=== PATIENT | male | born 1980 | race Caucasian/White ===

== ENCOUNTER 2017-02-17 19:07 | Outpatient (CLI) | payer MEDICAID | END 2017-02-17 19:08 | disposition critical access hospital (66) | LOC: EMS 19:07 | PROVIDERS: ATTEND Surgery | DX: R41.82 Altered mental status, unspecified (principal); T40.1X1A Poisoning by heroin, accidental (unintentional), initial encounter | CPT/HCPCS: A0425; A0427 ==

== ENCOUNTER 2017-02-17 19:34 | Emergency (ER) | payer MEDICAID ==
--- NOTE | 2017-02-17 20:03 | ED Physician Documentation ---
PD HPI OVERDOSE - Stated complaint Stated Complaint: OD - Chief complaint Chief Complaint: MHE - History obtained from History obtained from: Patient, EMS - History of Present Illness Timing - onset: How many minutes ago (30) Subtance(s) ingested: EtOH, Narcotic Associated symptoms: Unresponsive (he was using heroin with friends and says he told them that he will appear passed out. However he reportedly stopped breathing and friends started CPR until EMS arrived. He was given Narcan with prompt improvement in alertness. Brought to ED for evaluation. He says he feels okay enroute here.) Contributing factors: Accidental, Substance abuse. No: Depresssed, Suicidal Similar symptoms before: Diagnosis (has had heroin overdose in the past, as he says he will not do any for awhile and then will use for couple of weeks. The first time using again in a "run" he says he will pass out for a few minutes.) Review of Systems Constitutional: denies: Fever Nose: denies: Rhinorrhea / runny nose, Congestion Throat: denies: Sore throat Cardiac: denies: Chest pain / pressure Respiratory: denies: Cough GI: denies: Abdominal Pain, Vomiting, Diarrhea Neurologic: denies: Focal weakness, Numbness, Headache, Head injury PD PAST MEDICAL HISTORY - Past Medical History Cardiovascular: Hypertension Respiratory: None Endocrine/Autoimmune: None GI: None : None HEENT: None Psych: Other Musculoskeletal: None Derm: None - Past Surgical History Past Surgical History: Yes - Present Medications Home Medications: Ambulatory Orders Medication Instructions Recorded Confirmed Dextroamphetamine/Amphetamine 0 mg 08/21/16 [Adderall 10 mg Tablet] Gabapentin 0 mg PO 08/21/16 HYDROcod/ACETAM 5/325 [Vicodin 1 - 2 ea PO Q6H PRN #20 tablet 08/21/16 5/325] Lisinopril 0 mg PO 08/21/16 Quetiapine Fumarate [Seroquel] 0 mg PO 08/21/16 - Allergies Allergies/Adverse Reactions: Allergies Allergy/AdvReac Type Severity Reaction Status Date / Time No Known Drug Allergies Allergy Verified 02/17/17 19:41 - Living Situation Living Situation: reports: With spouse/s.o. Living Arrangement: reports: At home - Social History Does the pt smoke?: Yes Smoking Status: Current every day smoker Does the pt drink ETOH?: Yes Does the pt have substance abuse?: No - Immunizations Immunizations are current?: Yes - POLST Patient has POLST: No PD ED PE NORMAL - Vitals Vital signs reviewed: Yes - General General: Alert and oriented X 3, No acute distress, Well developed/nourished - HEENT HEENT: PERRL (some hyperemia bilaterally. ), Moist mucous membranes, Pharynx benign - Neck Neck: Supple, no meningeal sign, No adenopathy - Cardiac Cardiac: RRR, No murmur - Respiratory Respiratory: Clear bilaterally - Abdomen Abdomen: Soft, Non tender - Derm Derm: Normal color, Warm and dry - Extremities Extremities: No tenderness to palpate, Normal ROM s pain - Neuro Neuro: Alert and oriented X 3, No motor deficit, Normal speech - Psych Psych: Normal affect Results - Vitals Vitals: Vital Signs - 24 hr 02/17/17 02/17/17 19:41 20:46 Temperature 36.4 C L Heart Rate 100 104 H Respiratory 16 18 Rate Blood Pressure 137/95 H 144/100 H O2 Saturation 97 99 Oxygen O2 Source Room air PD MEDICAL DECISION MAKING - ED course Complexity details: re-evaluated patient (he has remained alert and conversant during EMS ride here and now over an hour in ED. I feel he is safe for discharge and he would like to be headed out of ED at this time. ), considered differential, d/w patient (he says he told friends that he might stop breathing for a minute or so, but to just watch him through it. However his friends called EMS when he was not breathing at all and looked dusky. He is doing okay here, and says he was doing only heroin. He is worried about the diagnosis appearing in his medical record and asks if there is any way for it to not be in the record. I told him that I can't lie/leave out important information from the EHR. He asks if there is a way for drug related info to not be included in his EHR, and I told him the most reliable way would be to not overdose on drugs and get brought to the ED in the first place. I suggested seeking help from NA/ drug counseling clinic/ etc to stop drug abuse.) Departure - Departure Disposition: 01 Home, Self Care Clinical Impression: Unresponsive episode Accidental drug overdose Qualifiers: Encounter type: initial encounter Qualified Code(s): T50.901A - Poisoning by unspecified drugs, medicaments and biological substances, accidental ( unintentional), initial encounter Condition: Stable Record reviewed to determine appropriate education?: Yes Instructions: ED Overdose Accidental Follow-Up: Herminia Denney ARNP [Primary Care Provider] - Comments: Drink lots of fluids tonight. No alcohol or other drugs. Return if further problems. Discharge Date/Time: 02/17/17 20:42
[2017-02-17 20:46] VITALS: BP 144/100
== END 2017-02-17 20:42 | disposition home or self-care (01) ==
LOC: EDUNIT# → ED 19:34
DX: R40.1 Stupor (principal); T40.1X1A Poisoning by heroin, accidental (unintentional), initial encounter; I10 Essential (primary) hypertension; F17.200 Nicotine dependence, unspecified, uncomplicated
CPT/HCPCS: 99283; 99284

== ENCOUNTER 2017-03-05 15:49 | Outpatient (CLI) | payer MEDICAID ==
--- NOTE | 2017-03-06 17:52 | XRAY Report ---
EXAM: STERNUM RADIOGRAPHY EXAM DATE: 03/05/2017 04:08 PM. CLINICAL HISTORY: CONTUSION OF UNSPECIFIED FRONT WALL OF THORAX. COMPARISON: None. TECHNIQUE: 2 views. FINDINGS: Bones: Normal. No fracture or bone lesion. Soft Tissues: The visualized lungs are clear. IMPRESSION: Normal sternum radiography. [facility] Referring Provider Line: [phone] SITE ID: [id number]
== END 2017-03-05 15:50 | disposition home or self-care (01) ==
LOC: DI.S 15:49
PROVIDERS: ATTEND Nurse Practitioner Family
DX: S20.219A Contusion of unspecified front wall of thorax, initial encounter (principal)
CPT/HCPCS: 71120

== ENCOUNTER 2017-04-04 12:23 | Outpatient (CLI) | payer MEDICAID | END 2017-04-04 12:24 | disposition critical access hospital (66) | LOC: EMS 12:23 | PROVIDERS: ATTEND Surgery | DX: R55 Syncope and collapse (principal) | CPT/HCPCS: A0425; A0429 ==

== ENCOUNTER 2017-04-04 13:05 | Emergency (ER) | payer MEDICAID ==
[2017-04-04 13:12] VITALS: BP 131/90
--- NOTE | 2017-04-04 13:12 | ED Physician Documentation ---
PD HPI OVERDOSE - Stated complaint Stated Complaint: OD - History obtained from History obtained from: Patient, EMS - History of Present Illness Timing - onset: Other (Brought in by ambulance, he says he was drinking alcohol in combination with pain medication that he had for recent oral surgery. Per EMS he was surrounded by heroin needles and he does have a history of heroin abuse. Regardless he was unresponsive, but not hypoxic. Brought in by ambulance, no interventions in route, specifically no Narcan. On arrival he is awake and still slightly somnolent but talking and maintaining his airway without hypoxemia.) Review of Systems Constitutional: denies: Fever, Chills GI: denies: Nausea, Vomiting, Diarrhea Musculoskeletal: denies: Neck pain, Back pain PD PAST MEDICAL HISTORY - Past Medical History Cardiovascular: Hypertension Respiratory: None Endocrine/Autoimmune: None GI: None : None HEENT: None Psych: Other Musculoskeletal: None Derm: None - Past Surgical History Past Surgical History: Yes - Present Medications Home Medications: Ambulatory Orders Medication Instructions Recorded Confirmed Gabapentin 0 mg PO 08/21/16 HYDROcod/ACETAM 5/325 [Vicodin 1 - 2 ea PO Q6H PRN #20 tablet 08/21/16 5/325] Lisinopril 0 mg PO 08/21/16 Quetiapine Fumarate [Seroquel] 0 mg PO 08/21/16 - Allergies Allergies/Adverse Reactions: Allergies Allergy/AdvReac Type Severity Reaction Status Date / Time No Known Drug Allergies Allergy Verified 02/17/17 19:41 - Social History Does the pt smoke?: Yes Smoking Status: Current every day smoker Does the pt drink ETOH?: Yes Does the pt have substance abuse?: No - Immunizations Immunizations are current?: Yes - POLST Patient has POLST: No PD ED PE NORMAL - Vitals Vital signs reviewed: Yes - General General: Alert and oriented X 3, No acute distress, Other (Slightly slow slurred speech, small pupils, cogent) - Neck Neck: Supple, no meningeal sign, No bony TTP - Cardiac Cardiac: RRR, No murmur - Respiratory Respiratory: No respiratory distress, Clear bilaterally - Abdomen Abdomen: Non tender, Non distended - Extremities Extremities: No deformity, No tenderness to palpate, Normal ROM s pain, No edema , No calf tenderness / cord - Neuro Neuro: No motor deficit, No sensory deficit Results - Vitals Vitals: Vital Signs - 24 hr 04/04/17 13:07 Temperature 36.9 C Heart Rate 107 H Respiratory 14 Rate Blood Pressure 131/90 H O2 Saturation 98 Oxygen O2 Source Room air PD MEDICAL DECISION MAKING - ED course ED course: He presents with either a heroin overdose or a combination of alcohol and pain killers. There was no need for Narcan and he was observed for a couple of hours and he remained cogent. He was ambulatory in the department without issue. He was advised not to use drugs. Departure - Departure Disposition: 01 Home, Self Care Clinical Impression: Narcotic overdose Qualifiers: Encounter type: initial encounter Injury intent: accidental or unintentional Qualified Code(s): T40.601A - Poisoning by unspecified narcotics, accidental ( unintentional), initial encounter Condition: Good Record reviewed to determine appropriate education?: Yes Comments: Stay away from drugs, especially drugs in combination with alcohol. Call your doctor to arrange a follow-up appointment, make the next available appointment. In the interim, return anytime if worse or if new symptoms develop. Your blood pressure was elevated today on check into the emergency department. This does not mean that you have hypertension, it is a common phenomenon to come to the emergency department and have elevated blood pressure. I recommend that she see her primary care physician within the week to have it rechecked when you are feeling better.
== END 2017-04-04 14:47 | disposition home or self-care (01) ==
LOC: EDUNIT# → ED 13:05
DX: T40.601A Poisoning by unspecified narcotics, accidental (unintentional), initial encounter (principal); I10 Essential (primary) hypertension; F17.200 Nicotine dependence, unspecified, uncomplicated
CPT/HCPCS: 99283

== ENCOUNTER 2017-05-18 16:35 | Outpatient (CLI) | payer MEDICAID | END 2017-05-18 16:36 | disposition short-term general hospital (02) | LOC: EMS 16:35 | PROVIDERS: ATTEND Surgery | DX: S91.011A Laceration without foreign body, right ankle, initial encounter (principal); W11.XXXA Fall on and from ladder, initial encounter; Y92.008 Other place in unspecified non-institutional (private) residence as the place of occurrence of the external cause | CPT/HCPCS: A0425; A0433 ==

== ENCOUNTER 2017-11-03 11:01 | Emergency (ER) | payer MEDICAID ==
--- NOTE | 2017-11-03 11:56 | ED Physician Documentation ---
History of Present Illness - Stated complaint Stated Complaint: POST SURGERY SITE REDNESS - Chief complaint Chief Complaint: Ext Problem - History obtained from History obtained from: Patient, Family (mother) - History of Present Illness Timing: How many days ago (2) Pain level max: 3 Pain level now: 3 Improved by: elevation Worsened by: walking - Additonal information Additional information: Patient is a 37 year old male who is s/p calcaneus fracture and repair in july. complicated by wound infection and skin grafting. States was on IV vancomycin and discharged from [facility] on 09/25 and has been on bactrim and minocycline since that time. Stopped abx 2 days ago and now increasing redness and pain. Patient was scheduled to see infectious disease at [facility] today, but could not find a ride and so came here instead. He is being followed by plastic surgery for the graft and orthopedics for the ankle hardware. Review of Systems Constitutional: denies: Fever, Chills Nose: denies: Rhinorrhea / runny nose, Congestion Respiratory: denies: Cough GI: denies: Nausea, Vomiting, Diarrhea Skin: denies: Rash Musculoskeletal: denies: Neck pain, Back pain Neurologic: denies: Headache PD PAST MEDICAL HISTORY - Past Medical History Past Medical History: Yes Cardiovascular: Hypertension Respiratory: None Endocrine/Autoimmune: None GI: None : None HEENT: None Psych: Other Musculoskeletal: None Derm: None - Past Surgical History Past Surgical History: Yes - Present Medications Home Medications: Ambulatory Orders Medication Instructions Recorded Confirmed Gabapentin 0 mg PO 08/21/16 Lisinopril 0 mg PO 08/21/16 Quetiapine Fumarate [Seroquel] 0 mg PO 08/21/16 Buprenorphine HCl/Naloxone HCl 1 each SL TID 11/03/17 11/03/17 [Suboxone 8 mg-2 mg Sl Film] Minocycline HCl 100 mg PO 11/03/17 Minocycline HCl 100 mg PO BID #28 capsule 11/03/17 Sulfamethox/Trimeth 800/160 2 each PO BID #56 tablet 11/03/17 [Bactrim Ds 800/160] Sulfamethoxazole/Trimethoprim 1 each PO 11/03/17 [Bactrim 400-80 mg Tablet] - Allergies Allergies/Adverse Reactions: Allergies Allergy/AdvReac Type Severity Reaction Status Date / Time bee venom protein (honey bee) Allergy Anaphylaxis Verified 11/03/17 11:06 - Social History Does the pt smoke?: Yes Smoking Status: Current every day smoker Does the pt drink ETOH?: Yes Does the pt have substance abuse?: No - Immunizations Immunizations are current?: Yes - POLST Patient has POLST: No PD ED PE NORMAL - Vitals Vital signs reviewed: Yes - General General: Alert and oriented X 3, No acute distress, Well developed/nourished - HEENT HEENT: Moist mucous membranes - Neck Neck: Supple, no meningeal sign - Cardiac Cardiac: RRR - Respiratory Respiratory: No respiratory distress, Clear bilaterally - Derm Derm: Warm and dry - Extremities Extremities: Other (R ankle graft in place over medial malleolus, slight swelling and warmth. no drainage. no lymphangitis.) - Neuro Neuro: Alert and oriented X 3 - Psych Psych: Normal mood, Normal affect Results - Vitals Vitals: Vital Signs - 24 hr 11/03/17 11/03/17 11/03/17 11:03 13:16 16:30 Temperature 36.8 C Heart Rate 104 H 94 88 Respiratory 18 16 20 Rate Blood Pressure 174/98 H 133/92 H 136/87 H O2 Saturation 100 97 Oxygen O2 Source Room air - Labs Labs: Laboratory Tests 11/03/17 11/03/17 11/03/17 12:30 12:30 12:30 WBC 7.0 RBC 5.29 Hgb 12.0 L Hct 37.8 L MCV 71.5 L MCH 22.6 L MCHC 31.7 L RDW 18.2 H Plt Count 291 MPV 6.1 L Neut # 4.8 Lymph # 1.6 [place] # 0.5 Eos # 0.0 Baso # 0.1 Absolute Nucleated RBC 0.00 Nucleated RBC % 0.0 ESR Sodium 133 L Potassium 3.6 Chloride 101 Carbon Dioxide 20 L Anion Gap 12.0 BUN 9 Creatinine 0.8 Estimated GFR (MDRD) 108 Glucose 130 H Lactic Acid 2.4 H Calcium 8.9 Total Bilirubin 0.4 AST 56 H ALT 64 H Alkaline Phosphatase 100 C-Reactive Protein Total Protein 7.6 Albumin 4.5 Globulin 3.1 Albumin/Globulin Ratio 1.5 Lipase 12 L 11/03/17 11/03/17 12:30 12:30 WBC RBC Hgb Hct MCV MCH MCHC RDW Plt Count MPV Neut # Lymph # [place] # Eos # Baso # Absolute Nucleated RBC Nucleated RBC % ESR 4 Sodium Potassium Chloride Carbon Dioxide Anion Gap BUN Creatinine Estimated GFR (MDRD) Glucose Lactic Acid Calcium Total Bilirubin AST ALT Alkaline Phosphatase C-Reactive Protein < 1.0 Total Protein Albumin Globulin Albumin/Globulin Ratio Lipase PD MEDICAL DECISION MAKING - ED course Complexity details: reviewed old records, reviewed results, re-evaluated patient , considered differential, d/w patient, d/w family, d/w reporting process consultant ED course: Patient is a 37-year-old gentleman who presents to the emergency department with swelling and tenderness to the right ankle graft. Discussed the case with Dr. Palomo, plastic surgery on-call at [facility] at 1350 and he will follow-up with plastic surgery in 1-2 weeks in clinic. Also discussed case with Dr. Hudson, at 1645, infectious disease on-call who recommends continue current antibiotics and follow-up in 1-2 weeks as well. Patient is well-appearing, nontoxic. Blood cultures were drawn in case they turn positive given his slightly elevated lactate. Negative inflammatory markers. Patient counseled regarding signs and symptoms for which I believe and urgent re- evaluation would be necessary. Patient with good understanding of and agreement to plan and is comfortable going home at this time This document was made in part using voice recognition software. While efforts are made to proofread this document, sound alike and grammatical errors may occur. Departure - Departure Disposition: 01 Home, Self Care Clinical Impression: Cellulitis Qualifiers: Site of cellulitis: extremity Site of cellulitis of extremity: lower extremity Laterality: right Qualified Code(s): L03.115 - Cellulitis of right lower limb Condition: Good Instructions: ED Infec Skin Cellulitis Follow-Up: Herminia Denney ARNP [Primary Care Provider] - Prescriptions: Minocycline HCl 100 mg PO BID #28 capsule Sulfamethox/Trimeth 800/160 [Bactrim Ds 800/160] 2 each PO BID #56 tablet Comments: Take all antibiotics until gone. Return if you worsen. I spoke with Dr. Palomo at [facility] today (plastics) and would like you to be seen in clinic in 1-[address] Glover. Infectious disease has not called back despite multiple pages over the past 3 hours. We will extend your antibiotics and I will talk to them if they call back Discharge Date/Time: 11/03/17 16:43
[2017-11-03 12:36] LABS: BASOPHILS # (AUTO) 0.1 10^3/uL (0.0-0.1); BASOPHILS % (AUTO) 0.9 %; EOSINOPHILS % (AUTO) 0.5 %; LYMPHOCYTES # (AUTO) 1.6 10^3/uL (1.5-3.5); LYMPHOCYTES % (AUTO) 23.4 %; MEAN CORPUSCULAR HEMOGLOBIN 22.6 pg (27.0-31.0); MEAN CORPUSCULAR HGB CONC 31.7 g/dL (32.0-36.0); MEAN CORPUSCULAR VOLUME 71.5 fL (80.0-94.0); MEAN PLATELET VOLUME 6.1 fL (7.4-11.4); MONOCYTES # (AUTO) 0.5 10^3/uL (0.0-1.0); MONOCYTES % (AUTO) 6.7 %; NEUTROPHILS # (AUTO) 4.8 10^3/uL (1.5-6.6); NEUTROPHILS % (AUTO) 68.5 %; PLT - PLATELET COUNT 291 10^3/uL (130-450); RED BLOOD COUNT 5.29 10^6/uL (4.70-6.10); RED CELL DISTRIBUTION WIDTH 18.2 % (12.0-15.0)
[2017-11-03 12:48] LABS: ALBUMIN 4.5 g/dL (3.2-5.5); ALBUMIN/GLOBULIN RATIO 1.5 (1.0-2.2); BILIRUBIN,TOTAL 0.4 mg/dL (0.2-1.0); CALCIUM 8.9 mg/dL (8.5-10.3); CREATININE 0.8 mg/dL (0.6-1.2); TOTAL PROTEIN 7.6 g/dL (6.7-8.2)
[2017-11-03] MEDS ORDERED: cefTRIAXone 1 GM VIAL IM STA (13:56)
[2017-11-03] MEDS ORDERED: LIDOCAINE 1% 2 ML VIAL SUBQ ONE (13:56)
[2017-11-03 16:43] VITALS: BP 136/87
== END 2017-11-03 16:43 | disposition home or self-care (01) ==
LOC: ED 11:01
DX: L03.115 Cellulitis of right lower limb (principal); Z98.890 Other specified postprocedural states; I10 Essential (primary) hypertension
CPT/HCPCS: 36415; 80053; 83605; 83690; 85025; 85651; 86140; 87040; 96372; 99283; 99284

== ENCOUNTER 2018-03-03 00:31 | Emergency (ER) | payer MEDICAID ==
--- NOTE | 2018-03-03 03:03 | ED Physician Documentation ---
History of Present Illness - Stated complaint Stated Complaint: FEVER - Chief complaint Chief Complaint: Fever - History obtained from History obtained from: Patient - History of Present Illness Timing: Yesterday Pain level now: 6 Improved by: rest Worsened by: palpation, weight-bearing - Additonal information Additional information: patient says he is scheduled to have surgery at 7 AM at [facility] to have revision of RLE hardware that had been placed last year to repair traumatic injury. patient says he has had fevers over past 24 hours, Tmax 102.8. He also c/o increased pain and swelling of the RLE x 1 - 2 days. PD PAST MEDICAL HISTORY - Past Medical History Cardiovascular: Hypertension Respiratory: None Endocrine/Autoimmune: None GI: None : None HEENT: None Psych: Other Musculoskeletal: None Derm: None - Past Surgical History Past Surgical History: Yes - Present Medications Home Medications: Ambulatory Orders Medication Instructions Recorded Confirmed Gabapentin 800 mg PO TID 08/21/16 Lisinopril 40 mg PO DAILY 08/21/16 Quetiapine Fumarate [Seroquel] 100 mg PO DAILY 08/21/16 Buprenorphine HCl/Naloxone HCl 1 each SL TID 11/03/17 03/03/18 [Suboxone 8 mg-2 mg Sl Film] - Allergies Allergies/Adverse Reactions: Allergies Allergy/AdvReac Type Severity Reaction Status Date / Time bee venom protein (honey bee) Allergy Anaphylaxis Verified 03/03/18 00:40 - Social History Does the pt smoke?: Yes Smoking Status: Current every day smoker Does the pt drink ETOH?: Yes Does the pt have substance abuse?: No - Immunizations Immunizations are current?: Yes - POLST Patient has POLST: No Results - Vitals Vitals: Oxygen O2 Source Room air - Labs Labs: Laboratory Tests 03/03/18 03/03/18 03/03/18 03:55 03:55 03:55 WBC 11.4 H RBC 5.35 Hgb 12.7 L Hct 39.6 L MCV 74.1 L MCH 23.7 L MCHC 32.0 RDW 19.1 H Plt Count 216 MPV 6.1 L Neut # (Auto) 7.9 H Lymph # (Auto) 2.3 [place] # (Auto) 1.1 H Eos # (Auto) 0.0 Baso # (Auto) 0.1 Absolute Nucleated RBC 0.01 Nucleated RBC % 0.1 ESR 1 Sodium 133 L Potassium 3.7 Chloride 96 L Carbon Dioxide 28 Anion Gap 9.0 BUN 8 Creatinine 0.9 Estimated GFR (MDRD) 93 Glucose 124 H Calcium 8.7 C-Reactive Protein 2.8 H PD MEDICAL DECISION MAKING - ED course Complexity details: reviewed old records, considered differential, d/w patient ED course: no obvious source for fever, although there is unusual warmth (tactile) over the RLE surgical site, which is exhibits swelling, tenderness, and erythema; it is unclear if these findings are new, although patient says the pain and swelling are not normal for him. He did not request any medications during entire ED stay. D/W Dr. Choi (ortho with Dr. Poole, who is scrubbed into surgery); recommends patient come to [facility] as scheduled for surgery, and he can be assessed preoperatively to determine whether the surgery can proceed, or if he is too ill for surgery (in which case he might be sent to ED). If patient does not appear to be ill enough to obviously require hospital admission, can consider the option of private vehicle as patient was planning. unfortunately, when I discussed this with the patient, he reveals to me that he planned to have his friend drive him to [facility] for the appointment, but he feels his friend drank too much alcohol to safely drive. I asked patient how he got to [facility] ED, and he says the same friend drove him here. I advised him to tell his friend to not drive if he is intoxicated, but patient indicates to me that his friend dropped him off and left a while ago. Patient says he has no other options to get to [facility] except some transport company that requires 24 hours notice. At this point, I decided to transport patient by ambulance to [facility] ED. I feel that he needs further evaluation for source of fever on an expedited basis, and the orthopedic team at [facility] will need to be involved in ascertaining whether the leg hardware is involved in the cause of the fever (and whether surgery will be necessary to treat the fevers etiology). - Sepsis Event Vital Signs: Oxygen O2 Source Room air Departure - Departure Disposition: 02 Transfer Acute Care Hosp Clinical Impression: Fever, Leg pain, right Condition: Good Discharge Date/Time: 03/03/18 08:39
[2018-03-03 04:05] LABS: BASOPHILS # (AUTO) 0.1 10^3/uL (0.0-0.1); BASOPHILS % (AUTO) 0.8 %; HGB - HEMOGLOBIN 12.7 g/dL (14.0-18.0); LYMPHOCYTES # (AUTO) 2.3 10^3/uL (1.5-3.5); LYMPHOCYTES % (AUTO) 20.5 %; MEAN CORPUSCULAR HEMOGLOBIN 23.7 pg (27.0-31.0); MEAN CORPUSCULAR VOLUME 74.1 fL (80.0-94.0); MEAN PLATELET VOLUME 6.1 fL (7.4-11.4); MONOCYTES # (AUTO) 1.1 10^3/uL (0.0-1.0); MONOCYTES % (AUTO) 9.6 %; NEUTROPHILS # (AUTO) 7.9 10^3/uL (1.5-6.6); NEUTROPHILS % (AUTO) 69.1 %; PLT - PLATELET COUNT 216 10^3/uL (130-450); RED BLOOD COUNT 5.35 10^6/uL (4.70-6.10); RED CELL DISTRIBUTION WIDTH 19.1 % (12.0-15.0); WHITE BLOOD COUNT 11.4 x10^3/uL (4.8-10.8)
[2018-03-03 04:22] LABS: CALCIUM 8.7 mg/dL (8.5-10.3); CREATININE 0.9 mg/dL (0.6-1.2); CRP - C-REACTIVE PROTEIN 2.8 mg/dL (0-1.0)
[2018-03-03 08:41] VITALS: BP 120/90
== END 2018-03-03 08:39 | disposition short-term general hospital (02) ==
LOC: ED 00:31
DX: R50.9 Fever, unspecified (principal); M79.661 Pain in right lower leg; M79.89 Other specified soft tissue disorders; I10 Essential (primary) hypertension; F17.200 Nicotine dependence, unspecified, uncomplicated
CPT/HCPCS: 36415; 80048; 85025; 85651; 86140; 99283

== ENCOUNTER 2018-04-03 12:02 | Emergency (ER) | payer MEDICAID ==
[2018-04-03] MEDS ORDERED: VANCOMYCIN INJ 1 GM in SODIUM CHLORIDE 0.9% 500 ML IV STA (12:54)
[2018-04-03] MEDS ORDERED: PIPERACILLIN/TAZOBACTAM 3.375 GM in SODIUM CHLORIDE 0.9% MINIBAG 100 ML IV STA (12:54)
--- NOTE | 2018-04-03 12:57 | ED Physician Documentation ---
History of Present Illness - Stated complaint Stated Complaint: R FOOT SWELLING/PX POST OP 10 DAYS - Chief complaint Chief Complaint: Ext Problem - Additonal information Additional information: hx from pt 38 male last fall had a 40 ft fall off ladder into a ravine and suffered an open L calcaneal fx had surgery at [facility] has had 8 or 9 surgeries since and infections at one point was admitted for 2 months of IV ab most recent surgery was 10 days ago - ortho red team no painful red swollen and draining pus from posterior incision Review of Systems Constitutional: denies: Fever Cardiac: denies: Chest pain / pressure Respiratory: denies: Dyspnea Musculoskeletal: reports: Extremity pain PD PAST MEDICAL HISTORY - Past Medical History Past Medical History: Yes Cardiovascular: Hypertension Respiratory: None Endocrine/Autoimmune: None GI: None : None HEENT: None Psych: Other Musculoskeletal: None Derm: None - Past Surgical History Past Surgical History: Yes - Present Medications Home Medications: Ambulatory Orders Medication Instructions Recorded Confirmed Gabapentin 800 mg PO TID 08/21/16 04/03/18 Lisinopril 40 mg PO DAILY 08/21/16 04/03/18 Quetiapine Fumarate [Seroquel] 100 mg PO DAILY 08/21/16 04/03/18 Modafinil 1 tab PO DAILY 04/03/18 04/03/18 OXcarbazepine [Oxcarbazepine] 1 tab PO DAILY 04/03/18 04/03/18 - Allergies Allergies/Adverse Reactions: Allergies Allergy/AdvReac Type Severity Reaction Status Date / Time bee venom protein (honey bee) Allergy Anaphylaxis Verified 04/03/18 12:10 - Social History Does the pt smoke?: Yes Smoking Status: Current every day smoker Does the pt drink ETOH?: Yes Does the pt have substance abuse?: No - Immunizations Immunizations are current?: Yes - POLST Patient has POLST: No PD ED PE NORMAL - Vitals Vital signs reviewed: Yes - Cardiac Cardiac: RRR - Respiratory Respiratory: No respiratory distress, Clear bilaterally - Extremities Extremities: Other (L foot / heel deformity, numerous surgical scars, skin grafts, posterior suture line dehisc with purulent drainage whch was cultured, erythema and some warmth very TTP, MSV intact) Results - Vitals Vitals: Vital Signs - 24 hr 04/03/18 04/03/18 12:07 14:39 Temperature 36.1 C L 36.6 C Heart Rate 97 85 Respiratory 18 18 Rate Blood Pressure 147/91 H 141/77 H O2 Saturation 97 96 Oxygen O2 Source Room air - Labs Labs: Laboratory Tests 04/03/18 04/03/18 13:40 13:40 WBC 11.9 H RBC 5.49 Hgb 13.3 L Hct 40.5 L MCV 73.8 L MCH 24.2 L MCHC 32.8 RDW 18.4 H Plt Count 398 MPV 5.8 L Neut # (Auto) Not Reportable Lymph # (Auto) Not Reportable Saline # (Auto) Not Reportable Eos # (Auto) Not Reportable Baso # (Auto) Not Reportable Absolute Nucleated RBC Not Reportable Total Counted 100 Band Neuts % (Manual) 1 Abnorm Lymph % (Manual) 0 Nucleated RBC % Not Reportable Neutrophils # (Manual) 7.6 H Lymphocytes # (Manual) 3.5 Monocytes # (Manual) 0.7 Eosinophils # (Manual) 0.1 Basophils # (Manual) 0.0 Differential Comment MANUAL DIFFERENTIAL Platelet Estimate NORMAL (130-450,000) Platelet Morphology NORMAL APPEARANCE RBC Morph Micro Appear 1+ HYPOCHROMASIA Sodium 133 L Potassium 4.2 Chloride 94 L Carbon Dioxide 29 Anion Gap 10.0 BUN 6 Creatinine 0.8 Estimated GFR (MDRD) 107 Glucose 109 H Calcium 8.9 PD MEDICAL DECISION MAKING - ED course ED course: spoke to [facility] ortho pt surgery was actually mid February and he did not make his follow up appt they rec transfer to ER for them to eval pt accepting is ortho Dr Garsia labs pending did not order imaging as will need to compare to old given extensive reconstructive surgery zosyn and vanco IV percocet for pain - Sepsis Event Vital Signs: Vital Signs - 24 hr 04/03/18 04/03/18 12:07 14:39 Temperature 36.1 C L 36.6 C Heart Rate 97 85 Respiratory 18 18 Rate Blood Pressure 147/91 H 141/77 H O2 Saturation 97 96 Oxygen O2 Source Room air Departure - Departure Disposition: 02 Transfer Acute Care Hosp Clinical Impression: Post op infection Qualifiers: Encounter type: initial encounter Qualified Code(s): T81.4XXA - Infection following a procedure, initial encounter Condition: Good Discharge Date/Time: 04/03/18 15:24
[2018-04-03] MEDS ORDERED: oxyCOD/ACETAMIN 5 MG/325 MG TABLET PO STA (13:40)
[2018-04-03 13:50] LABS: BASOPHILS % (AUTO) 0.9 %; EOSINOPHILS % (AUTO) 0.3 %; HGB - HEMOGLOBIN 13.3 g/dL (14.0-18.0); LYMPHOCYTES % (AUTO) 24.9 %; MEAN CORPUSCULAR HEMOGLOBIN 24.2 pg (27.0-31.0); MEAN CORPUSCULAR HGB CONC 32.8 g/dL (32.0-36.0); MEAN CORPUSCULAR VOLUME 73.8 fL (80.0-94.0); MEAN PLATELET VOLUME 5.8 fL (7.4-11.4); MONOCYTES % (AUTO) 8.9 %; PLT - PLATELET COUNT 398 10^3/uL (130-450); RED BLOOD COUNT 5.49 10^6/uL (4.70-6.10); RED CELL DISTRIBUTION WIDTH 18.4 % (12.0-15.0); WHITE BLOOD COUNT 11.9 x10^3/uL (4.8-10.8)
[2018-04-03 13:54] LABS: ABNORMAL LYMPHS % (MANUAL) 0 %; CALCIUM 8.9 mg/dL (8.5-10.3); CREATININE 0.8 mg/dL (0.6-1.2)
[2018-04-03 14:17] LABS: BAND NEUTROPHILS % (MANUAL) 1 %; EOSINOPHILS # (MANUAL) 0.1 10^3/uL (0-0.7); LYMPHOCYTES # (MANUAL) 3.5 10^3/uL (1.5-3.5); LYMPHOCYTES % (MANUAL) 29 %; MONOCYTES # (MANUAL) 0.7 10^3/uL (0.0-1.0); NEUTROPHILS # (MANUAL) 7.6 10^3/uL (1.5-6.6); NEUTROPHILS % (MANUAL) 63 %; PLATELET MORPHOLOGY NORMAL APPEARANCE (NORMAL)
[2018-04-03 14:18] LABS: DIFFERENTIAL COMMENT MANUAL DIFFERENTIAL; PLATELET ESTIMATE, MANUAL NORMAL (130-450,000) (NORMAL)
[2018-04-03 14:40] VITALS: BP 141/77
[2018-04-03] MEDS ORDERED: HYDROmorphone 1 MG/ML CARPUJECT IVP STA ×2 (15:03→15:04)
== END 2018-04-03 15:24 | disposition short-term general hospital (02) ==
LOC: ED 12:02
DX: T81.4XXA Infection following a procedure, initial encounter (principal); M79.671 Pain in right foot; M79.89 Other specified soft tissue disorders; I10 Essential (primary) hypertension; F17.200 Nicotine dependence, unspecified, uncomplicated
CPT/HCPCS: 36415; 80048; 85025; 87070; 87181; 87205; 96365; 96375; 99283; 99284; A9270; J1170; J3370

== ENCOUNTER 2018-04-03 15:22 | Outpatient (CLI) | payer MEDICAID | END 2018-04-03 15:23 | disposition short-term general hospital (02) | LOC: EMS 15:22 | PROVIDERS: ATTEND Surgery | DX: M79.671 Pain in right foot (principal); M79.89 Other specified soft tissue disorders | CPT/HCPCS: A0425; A0426; A0999 ==

== ENCOUNTER 2018-05-27 12:00 | Emergency (ER) | payer MEDICAID ==
--- NOTE | 2018-05-27 12:58 | XRAY Report ---
Reason: pain Procedure Date: 05/27/2018 Accession Number: [id number] / [id number] Procedure: XR - Ankle 3 View RT CPT Code: FULL RESULT: EXAM: RIGHT ANKLE RADIOGRAPHY EXAM DATE: 05/27/2018 12:43 PM. CLINICAL HISTORY: Pain. COMPARISON: None. TECHNIQUE: 3 views. FINDINGS: Bones: Disuse osteopenia. Multiple screws in the calcaneus traverse a previous fracture. Fracture lines remain visible, with sclerosis. Loss of Boehler's angle. Small plantar and posterior calcaneal spurs. Ununited smooth margined fracture fragments at tips of lateral and medial malleoli. Deformity of posterior tibia at the level of posterior malleolus due to old fracture. No definite acute fracture or other bone lesion. Joints: Symmetrical mortise. Soft Tissues: Soft tissue swelling over the malleoli. Surgical joão posteriorly at the Achilles tendon level. IMPRESSION: 1. Soft tissue swelling. 2. Extensive postoperative and posttraumatic changes. Calcaneal fracture lines are made visible. RADIA
--- NOTE | 2018-05-27 13:07 | ED Physician Documentation ---
PD HPI LOWER EXT INJURY - Stated complaint Stated Complaint: R LEG PX - Chief complaint Chief Complaint: Ext Problem - History obtained from History obtained from: Patient - History of Present Illness PD HPI LOW EXT INJURY LOCATION: Right, Ankle (heel) Type of injury: Fall (he fell and landed onto right heel forcefully. Had had recent infection and surgery of that heel, with multiple surgeries in the past and infections. Has much increased pain ater anding on it, over baseline ain that he has chronically.) Timing - onset: Today Timing - details: Abrupt onset (has chronic pain of it, but markedly increased with injury today.) Worsened by: Moving, Palpating Associated symptoms: Swelling. No: Weakness, Numbness, Discolored Recently seen: Surgery (had surgery of the heel recently due to infection and prior surgeries.) Review of Systems Constitutional: denies: Fever, Chills, Myalgias Skin: reports: Lesions (chronic scarring right heel from prior surgeries and injuries.). denies: Abrasion (s), Laceration (s) Neurologic: denies: Focal weakness, Numbness PD PAST MEDICAL HISTORY - Past Medical History Cardiovascular: Hypertension Respiratory: None Endocrine/Autoimmune: None GI: None : None HEENT: None Psych: Other Musculoskeletal: None Derm: None - Past Surgical History Past Surgical History: Yes - Present Medications Home Medications: Ambulatory Orders Medication Instructions Recorded Confirmed Gabapentin 800 mg PO TID 08/21/16 04/03/18 Lisinopril 40 mg PO DAILY 08/21/16 04/03/18 Quetiapine Fumarate [Seroquel] 100 mg PO DAILY 08/21/16 04/03/18 Modafinil 1 tab PO DAILY 04/03/18 04/03/18 OXcarbazepine [Oxcarbazepine] 1 tab PO DAILY 04/03/18 04/03/18 Buprenorphine HCl/Naloxone HCl 1 tab 05/27/18 [Suboxone 8-2 mg Sl tab] Doxycycline Monohydrate 100 mg PO BID #14 tablet 05/27/18 Mupirocin 1 applic TP TID #15 oint...g. 05/27/18 Naproxen [Naprosyn] 500 mg PO BID PRN #20 tablet 05/27/18 - Allergies Allergies/Adverse Reactions: Allergies Allergy/AdvReac Type Severity Reaction Status Date / Time bee venom protein (honey bee) Allergy Anaphylaxis Verified 05/27/18 12:15 - Social History Does the pt smoke?: Yes Smoking Status: Current every day smoker Does the pt drink ETOH?: Yes Does the pt have substance abuse?: No - Immunizations Immunizations are current?: Yes - POLST Patient has POLST: No PD ED PE NORMAL - Vitals Vital signs reviewed: Yes - General General: Alert and oriented X 3, Well developed/nourished, Other (appears in considerable pain due to heel. ) - Cardiac Cardiac: Strong equal pulses - Extremities Extremities: No edema, No calf tenderness / cord, Other (right heel is very tender plantar aspect. Achilles firm and intact. No obvious redness of foot/heel. ) - Neuro Neuro: No motor deficit, No sensory deficit Results - Vitals Vitals: Oxygen O2 Source Room air - Rads (name of study) ankle Radiology: Prelim report reviewed (post surgical changes without clear new acute abnormality. ) PD MEDICAL DECISION MAKING - ED course Complexity details: reviewed results, re-evaluated patient, considered differential (he has had surgery of the heel again recently and struck it forcefully with stepping and is having pain. Presume some swelling. Xray shows screws in place and surgical changes. Can be hard to tell if minor new fx. No gross new. ), d/w patient - Sepsis Event Vital Signs: Oxygen O2 Source Room air Departure - Departure Disposition: 01 Home, Self Care Clinical Impression: Post-operative state Heel pain Qualifiers: Laterality: right Qualified Code(s): M79.671 - Pain in right foot Contusion of right heel Qualifiers: Encounter type: initial encounter Qualified Code(s): S90.31XA - Contusion of right foot, initial encounter Condition: Stable Record reviewed to determine appropriate education?: Yes Instructions: ED Contusion Lower Ext Follow-Up: Herminia Denney ARNP [Primary Care Provider] - [facility] [Provider Group] Prescriptions: Doxycycline Monohydrate 100 mg PO BID #14 tablet Mupirocin 1 applic TP TID #15 oint...g. Naproxen [Naprosyn] 500 mg PO BID PRN #20 tablet PRN Reason: Pain Comments: Your x-ray has enough prior injury and surgical changes it is hard to tell subtle fractures that might be there. Nothing grossly jumps out as abnormal. We can treat it with a splint and crutches and switch over to your walking boot as it is improving. Follow-up with the if not improved over the next several days to week, call for an appointment. If there were some dislodgment of prior small fractures, that would be the main treatment initially. Continue your present medications and add naproxen twice daily for inflammation and pain. Cleanse or soak the prior wound with soap and water 2-3 times a day and apply ointment mupirocin. Since he had had recent infection of the soft tissue in that area, would be worried about inspiring a new infection with this injury and so you could take doxycycline twice daily for a week. Discharge Date/Time: 05/27/18 14:47
[2018-05-27] MEDS ORDERED: DOXYCYCLINE 100 MG TABLET PO STA (13:26)
[2018-05-27] MEDS ORDERED: KETOROLAC 60 MG/2 ML VIAL IM STA (13:26)
[2018-05-27 14:31] VITALS: BP 137/92
== END 2018-05-27 14:47 | disposition home or self-care (01) ==
LOC: ED 12:00
DX: M79.671 Pain in right foot (principal); Z98.890 Other specified postprocedural states; I10 Essential (primary) hypertension; F17.200 Nicotine dependence, unspecified, uncomplicated
CPT/HCPCS: 73610; 96372; 99283; A9270

== ENCOUNTER 2018-07-16 12:49 | Emergency (ER) | payer MEDICAID ==
--- NOTE | 2018-07-16 13:21 | ED Physician Documentation ---
PD HPI LOWER EXT INJURY - Stated complaint Stated Complaint: RT FOOT PX/POSS INFECTION - Chief complaint Chief Complaint: Wound - History obtained from History obtained from: Patient - History of Present Illness PD HPI LOW EXT INJURY LOCATION: Right, Foot Type of injury: Fall Where injury occurred: Other Timing - onset: How many years ago (1) Timing - duration: Years (1) Timing - details: Abrupt onset, Still present, Waxing and waning Pain level max: 6 Pain level now: 6 Improved by: Nothing Worsened by: Other (nothing) Associated symptoms: Swelling, Other (Drainage). No: Weakness, Numbness, Tingling, Discolored Contributing factors: Prior ortho surgery. No: Anticoagulated, Prosthetic joint Similar symptoms before: Diagnosis Recently seen: Clinic - Additional information Additional information: 38 year-old male with history of hypertension and half a pack a day smoking here with complaint of nonhealing wound of his right heel. Patient stated that Last year he fell 40 feet height and was seen at [facility] for shattered right heel. He had 7 surgeries for this right foot where rods and pins were put in place. However it had gotten infected so they had to do multiple surgeries for this. The last surgery was 3 months ago with similar problem infection so they change the rods and pins. Patient did not follow-up at [facility] for wound check. Patient is here now because he notices the past 1-1/2 weeks that the wound is now smelly with white drainage and the area is getting more red and swollen. Patient also stated he ran out of Suboxone yesterday. He denies fever or recent injury to the area. Review of Systems Ten Systems: 10 systems reviewed and negative Constitutional: reports: Chills, Sweats. denies: Fever, Myalgias Skin: reports: Other (Nonhealing wound of the right heel). denies: Rash, Laceration (s) Musculoskeletal: reports: Extremity pain, Extremity swelling, Other (Uses cane for walking). denies: Neck pain, Back pain Neurologic: denies: Generalized weakness, Focal weakness, Numbness PD PAST MEDICAL HISTORY - Past Medical History Past Medical History: No Cardiovascular: Hypertension Respiratory: None Neuro: Other Endocrine/Autoimmune: None GI: None : None HEENT: None Psych: Bipolar disorder, Post traumatic stress disorder Musculoskeletal: None Derm: None Other Past Medical History: narcalepsy - Past Surgical History Past Surgical History: Yes Ortho: Arthroscopic surgery - Present Medications Home Medications: Ambulatory Orders Medication Instructions Recorded Confirmed Quetiapine Fumarate [Seroquel] 100 mg PO DAILY 08/21/16 04/03/18 RX: Gabapentin 800 mg PO TID 08/21/16 04/03/18 RX: Lisinopril 40 mg PO DAILY 08/21/16 04/03/18 RX: Modafinil 1 tab PO DAILY 04/03/18 04/03/18 RX: OXcarbazepine [Oxcarbazepine] 1 tab PO DAILY 04/03/18 04/03/18 Buprenorphine HCl/Naloxone HCl 1 tab 05/27/18 [Suboxone 8-2 mg Sl tab] RX: Doxycycline Monohydrate 100 mg PO BID #14 tablet 05/27/18 RX: Mupirocin 1 applic TP TID #15 oint...g. 05/27/18 RX: Naproxen [Naprosyn] 500 mg PO BID PRN #20 tablet 05/27/18 - Allergies Allergies/Adverse Reactions: Allergies Allergy/AdvReac Type Severity Reaction Status Date / Time bee venom protein (honey bee) Allergy Anaphylaxis Verified 07/16/18 12:54 - Social History Does the pt smoke?: Yes Smoking Status: Current every day smoker Does the pt drink ETOH?: Yes Does the pt have substance abuse?: Yes Substance Use and Type: Marijuana, Heroin - Immunizations Immunizations are current?: Yes - POLST Patient has POLST: No PD ED PE NORMAL - Vitals Vital signs reviewed: Yes - General General: Alert and oriented X 3, No acute distress, Well developed/nourished - HEENT HEENT: Moist mucous membranes - Neck Neck: Supple, no meningeal sign - Cardiac Cardiac: RRR, No murmur - Respiratory Respiratory: No respiratory distress, Clear bilaterally - Abdomen Abdomen: Soft, Non tender - Back Back: No CVA TTP, No spinal TTP - Derm Derm: Warm and dry, No rash - Extremities Extremities: Normal ROM s pain, No edema, No calf tenderness / cord, Other (Right heel medial aspect with reddened area that is tender to touch on the medial malleolar area. Below this is an open wound about 2-1/2 inches that has a callus at the bottom of the open wound - there is scant drainage with beige scant drainage. Pulses +2. Sensation intact. Temperature normal. Capillary refill less than 2 seconds.) - Neuro Neuro: Alert and oriented X 3, No motor deficit, No sensory deficit - Psych Psych: Normal mood, Normal affect Results - Vitals Vitals: Vital Signs - 24 hr 07/16/18 07/16/18 12:51 18:47 Temperature 36.4 C L Heart Rate 98 94 Respiratory 18 18 Rate Blood Pressure 144/102 H 150/98 H O2 Saturation 99 99 Oxygen O2 Source Room air - Labs Labs: Laboratory Tests 07/16/18 07/16/18 14:18 14:18 WBC 8.5 RBC 5.37 Hgb 14.8 Hct 43.9 MCV 81.7 MCH 27.6 MCHC 33.8 RDW 19.9 H Plt Count 245 MPV 6.4 L Neut # (Auto) 4.4 Lymph # (Auto) 3.1 Daniels # (Auto) 0.9 Eos # (Auto) 0.1 Baso # (Auto) 0.1 Absolute Nucleated RBC 0.01 Nucleated RBC % 0.1 Sodium 135 Potassium 3.9 Chloride 104 Carbon Dioxide 25 Anion Gap 6.0 BUN 7 Creatinine 0.7 Estimated GFR (MDRD) 125 Glucose 95 Calcium 8.3 L PD MEDICAL DECISION MAKING - ED course Complexity details: reviewed results, re-evaluated patient ([id number] Patient requesting for pain medication and stated the last time he took his Suboxone was over 24 hours ago. Will give morphine for pain.[id number] patient stated morphine hardly catch his pain. Will try Dilaudid for pain. Patient inform all his test results including x-rays and labs. He agreed to be transferred to [facility] where all his orthopedic and wound care had been given. Patient also wants to go out and smoke but agreed to nicotine patch instead.[id number] patient sitting in the chair in room 13 with his smart phone in no acute distress and nontoxic appearing. He was inform of acceptance of transfer to [facility].), considered differential (Chronic nonhealing wound, cellulitis, abscess, osteomyelitis), d/w patient, d/w [employer] iam consultant (161 Spoke to transfer center nurse from [facility] an d case was discussed. She will find an orthopedic doctor for me. 16[address] [facility] orthopedic Dr. Hemant Cummins called and we discussed his case. He will accept the patient for transfer under their care. He does not want patient to be started on any antibiotics.) Departure - Departure Disposition: 02 Transfer Acute Care Hosp Clinical Impression: Non healing left heel wound Right calcaneal fracture Qualifiers: Fracture healing: with delayed healing Condition: Stable Discharge Date/Time: 07/16/18 18:53
[2018-07-16] MEDS ORDERED: MORPHINE 2 MG/ML CARPUJECT IVP STA (14:28)
--- NOTE | 2018-07-16 14:32 | XRAY Report ---
Reason: pain, nonhealing wound on the heel Procedure Date: 07/16/2018 Accession Number: [id number] / [id number] Procedure: XR - Foot 3 View RT CPT Code: FULL RESULT: EXAM: RIGHT FOOT RADIOGRAPHY EXAM DATE: 07/16/2018 01:38 PM. CLINICAL HISTORY: Pain, nonhealing wound on the heel. COMPARISON: None. TECHNIQUE: 3 views. FINDINGS: Bones: There is diffuse osteopenia with screw fixation of the calcaneus with prominent sclerosis of the mid calcaneus. No definite evidence of hardware fracture. Note is made of a lucent defect within the distal tibia, likely prior instrumentation. Sensitivity is reduced given the severity of the osteopenia although a clear acute fracture is not seen. Joints: No dislocation. Dorsal osteophytes at the mid foot. Soft Tissues: Plantar and Achilles heel spurs. Prominent soft tissue swelling posteriorly at the level of the heel. IMPRESSION: 1. Prominent posterior and heel soft tissue swelling. Sensitivity is reduced given the severity of the osteopenia although no compelling acute fracture or clear radiographic evidence of osteomyelitis is seen. 2. Status post screw fixation of the calcaneus with patchy sclerosis within the mid calcaneus, likely partial healing. RADIA
[2018-07-16 14:34] LABS: BASOPHILS # (AUTO) 0.1 10^3/uL (0.0-0.1); BASOPHILS % (AUTO) 1.1 %; EOSINOPHILS # (AUTO) 0.1 10^3/uL (0.0-0.7); EOSINOPHILS % (AUTO) 1.6 %; HGB - HEMOGLOBIN 14.8 g/dL (14.0-18.0); LYMPHOCYTES # (AUTO) 3.1 10^3/uL (1.5-3.5); MEAN CORPUSCULAR HEMOGLOBIN 27.6 pg (27.0-31.0); MEAN CORPUSCULAR HGB CONC 33.8 g/dL (32.0-36.0); MEAN CORPUSCULAR VOLUME 81.7 fL (80.0-94.0); MEAN PLATELET VOLUME 6.4 fL (7.4-11.4); MONOCYTES # (AUTO) 0.9 10^3/uL (0.0-1.0); MONOCYTES % (AUTO) 10.2 %; NEUTROPHILS # (AUTO) 4.4 10^3/uL (1.5-6.6); NEUTROPHILS % (AUTO) 51.1 %; PLT - PLATELET COUNT 245 10^3/uL (130-450); RED BLOOD COUNT 5.37 10^6/uL (4.70-6.10); RED CELL DISTRIBUTION WIDTH 19.9 % (12.0-15.0); WHITE BLOOD COUNT 8.5 x10^3/uL (4.8-10.8)
[2018-07-16 14:43] LABS: CALCIUM 8.3 mg/dL (8.5-10.3); CREATININE 0.7 mg/dL (0.6-1.2)
[2018-07-16] MEDS ORDERED: HYDROmorphone 1 MG/ML CARPUJECT IVP STA ×2 (15:58→18:40)
[2018-07-16] MEDS ORDERED: NICOTINE 21 MG PATCH TOP STA (15:58)
[2018-07-16 18:48] VITALS: BP 150/98
== END 2018-07-16 18:53 | disposition short-term general hospital (02) ==
LOC: ED 12:49
DX: T81.89XA Other complications of procedures, not elsewhere classified, initial encounter (principal); S92.001G Unspecified fracture of right calcaneus, subsequent encounter for fracture with delayed healing; Y83.8 Other surgical procedures as the cause of abnormal reaction of the patient, or of later complication, without mention of misadventure at the time of the procedure; I10 Essential (primary) hypertension; F17.200 Nicotine dependence, unspecified, uncomplicated; Z91.19 Patient's noncompliance with other medical treatment and regimen; Z79.899 Other long term (current) drug therapy
CPT/HCPCS: 36415; 73630; 80048; 85025; 96374; 96375; 96376; 99283; 99285; A9270; J1170

== ENCOUNTER 2018-08-02 11:32 | Emergency (ER) | payer MEDICAID ==
--- NOTE | 2018-08-02 12:29 | ED Physician Documentation ---
PD HPI WOUND RECHECK - Stated complaint Stated Complaint: PIC LINE DRESSING CAME OFF - Chief complaint Chief Complaint: Wound - Additional information Additional information: 38-year-old male who has a PICC line in his right arm for IV antibiotics accidentally disrupted his dressing. Today the patient Presents the emergency department requesting a dressing change. The patient has no other complaints or issues. Review of Systems Constitutional: denies: Fever, Chills Skin: denies: Rash Musculoskeletal: denies: Extremity swelling Neurologic: denies: Generalized weakness PD PAST MEDICAL HISTORY - Past Medical History Cardiovascular: Hypertension Respiratory: None Neuro: Other Endocrine/Autoimmune: None GI: None : None HEENT: None Psych: Bipolar disorder, Post traumatic stress disorder Musculoskeletal: None Derm: None - Past Surgical History Past Surgical History: Yes Ortho: Arthroscopic surgery - Present Medications Home Medications: Ambulatory Orders Medication Instructions Recorded Confirmed Gabapentin 800 mg PO TID 08/21/16 04/03/18 Lisinopril 40 mg PO DAILY 08/21/16 04/03/18 Quetiapine Fumarate [Seroquel] 100 mg PO DAILY 08/21/16 04/03/18 Modafinil 1 tab PO DAILY 04/03/18 04/03/18 OXcarbazepine [Oxcarbazepine] 1 tab PO DAILY 04/03/18 04/03/18 Buprenorphine HCl/Naloxone HCl 1 tab 05/27/18 [Suboxone 8-2 mg Sl tab] Doxycycline Monohydrate 100 mg PO BID #14 tablet 05/27/18 Mupirocin 1 applic TP TID #15 oint...g. 05/27/18 Naproxen [Naprosyn] 500 mg PO BID PRN #20 tablet 05/27/18 - Allergies Allergies/Adverse Reactions: Allergies Allergy/AdvReac Type Severity Reaction Status Date / Time bee venom protein (honey bee) Allergy Anaphylaxis Verified 08/02/18 11:45 - Social History Does the pt smoke?: Yes Smoking Status: Current every day smoker Does the pt drink ETOH?: Yes Does the pt have substance abuse?: Yes - Immunizations Immunizations are current?: Yes - POLST Patient has POLST: No PD ED PE NORMAL - General General: Alert and oriented X 3, No acute distress - HEENT HEENT: Atraumatic, PERRL - Derm Derm: Normal color, Other (A PICC line is in the right upper extremity, there is no surrounding erythema, crepitus or skin changes or signs of cellulitis or abscess. The PICC line is working) - Neuro Neuro: Alert and oriented X 3, Normal speech - Psych Psych: Normal affect Results - Vitals Vitals: Vital Signs - 24 hr 08/02/18 11:43 Temperature 36.6 C Heart Rate 96 Respiratory 16 Rate Blood Pressure 143/84 H O2 Saturation 96 Oxygen O2 Source Room air PD MEDICAL DECISION MAKING - ED course ED course: The patient's PICC line is intact, no evidence of acute infection associate the PICC line. The dressing will be changed and the patient will follow up with [facility] as scheduled. I discussed warning signs and recommended returning for any worsening or concerns. Departure - Departure Disposition: 01 Home, Self Care Clinical Impression: Dressing change Condition: Good Instructions: ED PICC Line Care Comments: Please follow-up with [facility] as scheduled. Please return for any worsening or any concerns
[2018-08-02 13:19] VITALS: BP 144/99
== END 2018-08-02 13:19 | disposition home or self-care (01) ==
LOC: ED 11:32
DX: Z48.00 Encounter for change or removal of nonsurgical wound dressing (principal); Z95.828 Presence of other vascular implants and grafts; I10 Essential (primary) hypertension; F17.200 Nicotine dependence, unspecified, uncomplicated
CPT/HCPCS: 96374; 99283

== ENCOUNTER 2018-12-19 16:31 | Outpatient (CLI) | payer MEDICARE | END 2018-12-19 23:59 | disposition home or self-care (01) | LOC: LAB.R 16:31 | PROVIDERS: ATTEND Registered Nurse | DX: T86.829 Unspecified complication of skin graft (allograft) (autograft) (principal) | CPT/HCPCS: 87070; 87075; 87077; 87205 ==

== ENCOUNTER 2019-01-27 12:22 | Emergency (ER) | payer MEDICARE ==
[2019-01-27] MEDS ORDERED: MORPHINE 2 MG/ML CARPUJECT IVP STA (13:06)
[2019-01-27] MEDS ORDERED: VANCOMYCIN INJ 1,500 GM in SODIUM CHLORIDE 0.9% 500 ML IV STA (13:24)
[2019-01-27] MEDS ORDERED: KETOROLAC 30 MG/ML VIAL IVP STA (13:24)
[2019-01-27 13:49] LABS: BASOPHILS # (AUTO) 0.1 10^3/uL (0.0-0.1); BASOPHILS % (AUTO) 1.4 %; EOSINOPHILS # (AUTO) 0.1 10^3/uL (0.0-0.7); EOSINOPHILS % (AUTO) 1.8 %; HGB - HEMOGLOBIN 14.8 g/dL (14.0-18.0); LYMPHOCYTES # (AUTO) 2.9 10^3/uL (1.5-3.5); MEAN CORPUSCULAR HEMOGLOBIN 30.7 pg (27.0-31.0); MEAN CORPUSCULAR HGB CONC 33.8 g/dL (32.0-36.0); MEAN CORPUSCULAR VOLUME 90.8 fL (80.0-94.0); MEAN PLATELET VOLUME 6.8 fL (7.4-11.4); MONOCYTES # (AUTO) 0.8 10^3/uL (0.0-1.0); MONOCYTES % (AUTO) 9.3 %; NEUTROPHILS # (AUTO) 4.5 10^3/uL (1.5-6.6); NEUTROPHILS % (AUTO) 53.5 %; PLT - PLATELET COUNT 222 10^3/uL (130-450); RED BLOOD COUNT 4.82 10^6/uL (4.70-6.10); RED CELL DISTRIBUTION WIDTH 18.6 % (12.0-15.0); WHITE BLOOD COUNT 8.5 x10^3/uL (4.8-10.8)
[2019-01-27] MEDS ORDERED: VANCOMYCIN INJ 1 GM, VANCOMYCIN INJ 500 MG in SODIUM CHLORIDE 0.9% 500 ML IV STA (13:49)
--- NOTE | 2019-01-27 13:56 | XRAY Report ---
Reason: third finger swelling, decreased ROm Procedure Date: 01/27/2019 Accession Number: [id number] / [id number] Procedure: XR - Finger(s) LT CPT Code: FULL RESULT: EXAM: LEFT THIRD DIGIT RADIOGRAPHY EXAM DATE: 01/27/2019 01:29 PM. CLINICAL HISTORY: Third finger swelling, decreased ROm. COMPARISON: FINGER(S) LT 11/23/2014 4:11 PM. TECHNIQUE: 3 views. FINDINGS: Bones: Fifth digit post traumatic chronic changes No acute fracture or bone lesion. Joints: Normal. No subluxations. Soft Tissues: Soft tissue swelling. IMPRESSION: No bony changes third digit RADIA
[2019-01-27 14:07] LABS: CALCIUM 8.8 mg/dL (8.5-10.3); CREATININE 0.6 mg/dL (0.6-1.2); CRP - C-REACTIVE PROTEIN 3.2 mg/dL (0-1.0)
[2019-01-27] MEDS ORDERED: VANCOMYCIN 1 GM VIAL ONE (14:07)
[2019-01-27] MEDS ORDERED: SODIUM CHLORIDE 0.9% 500 ML IV ONE (14:07)
--- NOTE | 2019-01-27 14:20 | ED Physician Documentation ---
PD HPI UPPER EXT INJURY - Stated complaint Stated Complaint: RT FOOT PAIN - Chief complaint Chief Complaint: Ext Problem - History obtained from History obtained from: Patient - History of Present Illness Location: Right, Hand, Finger, Other (foot and right hand pain, swelling) Type of injury: Other (unknown injury of L hand. He does have a hx of a fall on L foot requiring surgery and has chronic wounds and pain in this foot) Where injury occurred: Home Timing - duration: Months (1), Other (finger worse over last few days) Timing - details: Gradual onset Improved by: Rest, Immobilization, Other (elevation) Worsened by: Moving, Palpating Associated symptoms: Swelling, Discolored (red). No: Weakness, Numbness, Tingling Contributing factors: Prior ortho surgery (to R ankle). No: Anticoagulated Similar symptoms before: Diagnosis (cellulitis) Recently seen: Not recently seen Review of Systems Ten Systems: 10 systems reviewed and negative Constitutional: denies: Fever, Chills Respiratory: denies: Dyspnea Skin: reports: Rash Musculoskeletal: reports: Extremity pain, Joint pain, Extremity swelling, Joint swelling Neurologic: denies: Focal weakness, Numbness PD PAST MEDICAL HISTORY - Past Medical History Cardiovascular: Hypertension Respiratory: None Neuro: Other Endocrine/Autoimmune: None GI: None : None HEENT: None Psych: Bipolar disorder, Post traumatic stress disorder Musculoskeletal: None Derm: None - Past Surgical History Past Surgical History: Yes Ortho: Arthroscopic surgery - Present Medications Home Medications: Ambulatory Orders Medication Instructions Recorded Confirmed Gabapentin 1,200 mg PO TID 08/21/16 12/26/18 Lisinopril 40 mg PO DAILY 08/21/16 12/26/18 Quetiapine Fumarate [Seroquel] 100 mg PO DAILY 08/21/16 12/26/18 Modafinil 1 tab PO DAILY 04/03/18 12/26/18 OXcarbazepine [Oxcarbazepine] 1 tab PO BID 04/03/18 12/26/18 Buprenorphine HCl/Naloxone HCl 1 tab 05/27/18 [Suboxone 8-2 mg Sl tab] Amox/Clav 875/125 [Augmentin] 1 each PO Q12H #14 tablet 01/27/19 - Allergies Allergies/Adverse Reactions: Allergies Allergy/AdvReac Type Severity Reaction Status Date / Time bee venom protein (honey bee) Allergy Anaphylaxis Verified 01/27/19 12:33 - Social History Does the pt smoke?: Yes Smoking Status: Current every day smoker Does the pt drink ETOH?: Yes Does the pt have substance abuse?: Yes - Immunizations Immunizations are current?: Yes - POLST Patient has POLST: No PD ED PE NORMAL - Vitals Vital signs reviewed: Yes - General General: Alert and oriented X 3, No acute distress - HEENT HEENT: Atraumatic - Neck Neck: Supple, no meningeal sign - Cardiac Cardiac: RRR - Respiratory Respiratory: No respiratory distress - Abdomen Abdomen: Soft, Non tender, Non distended - Male Male : Deferred - Rectal Rectal: Deferred - Neuro Neuro: Alert and oriented X 3 Eye Opening: Spontaneous Motor: Obeys Commands Verbal: Oriented GCS Score: 15 - Psych Psych: Normal mood, Normal affect PD ED PE EXPANDED - General General: Alert, No acute distress - Derm Derm: Bruising, Other (erythema and bruising over L middle finger, held in slight flexion, no mild tenderness over top of finger but no tenderness over flexor surface. redness extends to L hand. Pt also with right medial ankle redness, warmth and swelling) - Extremities Extremities: Other (right ankle swelling, old injuries and scars present, minor medial aspect swelling and warmth, no discharge. Also w/L hand redness and tend erness over third finger with bruise and swelling, finger held in flexion, tender over dorsal surface.) Results - Vitals Vitals: Vital Signs - 24 hr 01/27/19 01/27/19 12:31 14:16 Temperature 36.0 C L 36.7 C Heart Rate 79 76 Respiratory 18 16 Rate Blood Pressure 140/89 H 109/87 H O2 Saturation 98 97 Oxygen O2 Source Room air - Labs Labs: Laboratory Tests 01/27/19 01/27/19 01/27/19 13:45 13:45 13:45 WBC 8.5 RBC 4.82 Hgb 14.8 Hct 43.7 MCV 90.8 MCH 30.7 MCHC 33.8 RDW 18.6 H Plt Count 222 MPV 6.8 L Neut # (Auto) 4.5 Lymph # (Auto) 2.9 [place] # (Auto) 0.8 Eos # (Auto) 0.1 Baso # (Auto) 0.1 Absolute Nucleated RBC 0.00 Nucleated RBC % 0.0 ESR 5 Sodium 139 Potassium 3.7 Chloride 101 Carbon Dioxide 24 Anion Gap 14.0 H BUN 9 Creatinine 0.6 Estimated GFR (MDRD) 149 Glucose 98 Calcium 8.8 C-Reactive Protein 3.2 H - Rads (name of study) No standard instances Radiology: Final report received (Soft Tissues: Soft tissue swelling. ) Procedures - General procedure General procedure: Performed attempted L third finger aspiration due to area of fluctuance and redness, performed with 18 gauge needle and 3cc syringe. Cleaned area first. Aspiration obtained blood only. Applied gauze and pressure afterwards, dressed. PD MEDICAL DECISION MAKING - ED course Complexity details: reviewed results, re-evaluated patient, considered differential, d/w patient ED course: 38 y/o M with hx of IVDA with multiple skin complaints and extremity pain. Pt mainly with L third finger pain, swelling held in flexion initially concerning for flexor tenosynovitis, but inflammtory markes not significantly elevated and pt not tender over flexor sheath. Given vancomycin here. Discussed case with Dr. Hess who feels this is likely a cellulitis. Pt does have area of fluctuance over top of finger thus performed small aspiration after cleansing the area but obtained only blood. Thus this is most likely a contusion of the finger which may have a mild cellulitis. Will initiate antibiotics. R ankle pain appears chronic, possibly some increased swelling. May be inflammatory but pt dotson tart antibiotics regardless. Departure - Departure Clinical Impression: Cellulitis of finger of right hand, Cellulitis of right foot, Cellulitis and abscess Pain in extremity Qualifiers: Extremity pain location: upper extremity Laterality: left Qualified Code(s): M79.602 - Pain in left arm Condition: Stable Record reviewed to determine appropriate education?: Yes Instructions: ED Cellulitis Ch Follow-Up: Kaitlin Gracia ARNP [Primary Care Provider] - Within 1 week Prescriptions: Amox/Clav 875/125 [Augmentin] 1 each PO Q12H #14 tablet Comments: Your examination and ED evaluation are consistent with a hand bruise that may have gotten infected with a surrounding finger cellulitis. Your ankle may also have some acute cellulitis. You were given vancomycin antibiotic IV in the ED today. You should take the prescribed antibiotic - Augmentin until complete and follow up with your regular doctor for a recheck.
[2019-01-27 16:53] VITALS: BP 188/84
== END 2019-01-27 17:08 | disposition home or self-care (01) ==
LOC: ED 12:22
DX: L03.012 Cellulitis of left finger (principal); L03.115 Cellulitis of right lower limb; S60.032A Contusion of left middle finger without damage to nail, initial encounter; X58.XXXA Exposure to other specified factors, initial encounter; M79.602 Pain in left arm; I10 Essential (primary) hypertension; F17.200 Nicotine dependence, unspecified, uncomplicated
CPT/HCPCS: 10160; 73140; 80048; 85025; 85651; 86140; 96365; 96366; 96375; 99283; 99284; J3370; 36415

== ENCOUNTER 2019-02-01 20:41 | Emergency (ER) | payer MEDICARE ==
[2019-02-01] MEDS ORDERED: VANCOMYCIN INJ 2 GM in SODIUM CHLORIDE 0.9% 500 ML IV STA (21:18)
--- NOTE | 2019-02-01 21:21 | ED Physician Documentation ---
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 He had been on long-term IV antibiotics, has been off for about 5 months. He was recently seen for increased pain and put on Augmentin after dose of vancomycin in the department. His foot is much better now, but he thinks he might of cut the dorsum of his left middle finger with the lawnmower a few days ago and has progressive pain and swelling of the left middle finger ever since without fevers.) Review of Systems Ten Systems: 10 systems reviewed and negative Constitutional: denies: Fever, Chills Throat: reports: Reviewed and negative Cardiac: reports: Reviewed and negative Respiratory: reports: Reviewed and negative PD PAST MEDICAL HISTORY - Past Medical History Past Medical History: Yes Cardiovascular: Hypertension Respiratory: None Neuro: Other Endocrine/Autoimmune: None GI: None : None HEENT: None Psych: Bipolar disorder, Post traumatic stress disorder Musculoskeletal: None Derm: None - Past Surgical History Past Surgical History: Yes Ortho: Arthroscopic surgery - Present Medications Home Medications: Ambulatory Orders Medication Instructions Recorded Confirmed Quetiapine Fumarate [Seroquel] 100 mg PO DAILY 08/21/16 12/26/18 RX: Gabapentin 1,200 mg PO TID 08/21/16 12/26/18 RX: Lisinopril 40 mg PO DAILY 08/21/16 12/26/18 RX: Modafinil 1 tab PO DAILY 04/03/18 12/26/18 RX: OXcarbazepine [Oxcarbazepine] 1 tab PO BID 04/03/18 12/26/18 Buprenorphine HCl/Naloxone HCl 1 tab 05/27/18 [Suboxone 8-2 mg Sl tab] Amox/Clav 875/125 [Augmentin] 1 each PO Q12H #14 tablet 01/27/19 Sulfamethoxazole/Trimethoprim 1 each PO BID #14 tablet 02/01/19 [Sulfamethoxazole-Tmp Ds Tablet] - Allergies Allergies/Adverse Reactions: Allergies Allergy/AdvReac Type Severity Reaction Status Date / Time bee venom protein (honey bee) Allergy Anaphylaxis Verified 05/31/19 12:33 - Social History Does the pt smoke?: Yes Smoking Status: Current every day smoker Does the pt drink ETOH?: Yes Does the pt have substance abuse?: Yes - Family History Family history: reports: Non contributory - Immunizations Immunizations are current?: Yes - POLST Patient has POLST: No PD ED PE NORMAL - Vitals Vital signs reviewed: Yes - General General: Alert and oriented X 3, No acute distress - HEENT HEENT: PERRL, EOMI - Neck Neck: Supple, no meningeal sign, No bony TTP - Back Back: No CVA TTP, No spinal TTP - Derm Derm: Normal color, Warm and dry - Extremities Extremities: Other (There appears to be chronic deformities of the right calcaneus, but no active signs of infection there. The left middle finger is diffusely swollen especially along the dorsal surface and limited range of motion at the PIP. There is cellulitic changes and potential abscess near the dorsal PIP not extending into the hand. There is no evidence of flexor infection.) - Neuro Neuro: Alert and oriented X 3, Normal speech - Psych Psych: Normal mood, Normal affect Results - Vitals Vitals: Vital Signs - 24 hr 02/01/19 02/01/19 02/01/19 20:50 21:12 22:35 Temperature 36.6 C Heart Rate 85 92 Respiratory 16 15 16 Rate Blood Pressure 148/104 H 158/101 H O2 Saturation 97 96 Oxygen O2 Source Room air - Labs Labs: Laboratory Tests 02/01/19 02/01/19 02/01/19 21:54 21:54 21:54 WBC 7.8 RBC 5.28 Hgb 16.0 Hct 48.3 MCV 91.3 MCH 30.2 MCHC 33.1 RDW 17.7 H Plt Count 281 MPV 6.5 L Neut # (Auto) 4.2 Lymph # (Auto) 2.8 [place] # (Auto) 0.6 Eos # (Auto) 0.1 Baso # (Auto) 0.1 Absolute Nucleated RBC 0.01 Nucleated RBC % 0.1 ESR 4 Sodium 134 L Potassium 3.4 L Chloride 93 L Carbon Dioxide 27 Anion Gap 14.0 H BUN 6 Creatinine 0.7 Estimated GFR (MDRD) 125 Glucose 97 Calcium 8.9 Total Bilirubin 0.6 AST 191 H ALT 165 H Alkaline Phosphatase 115 C-Reactive Protein 1.0 Total Protein 7.7 Albumin 3.7 Globulin 4.0 Albumin/Globulin Ratio 0.9 L Lipase 23 Procedures - Abscess I&D (location) L 3rd finger Preparation: Chlorhexadine, Lidocaine 1% (digital block) Incision: Incised with scalpel (stab incision), Purulent drainage (a lot), Loculations broken, Packed (with 1/4 inch packing), Culture obtained Other: Pt tolerated well, Dressing applied, Antibiotic prescribed (added bactrim, note may increase his K but K is lowish now.) PD MEDICAL DECISION MAKING - ED course ED course: This is a 38-year-old gentleman with history of infected right calcaneus who now presents with improved pain there but what looks like a dorsal finger infection of the third finger centered around the PIP. There is no evidence of a flexor infection. Case was discussed by phone with the on-call orthopedic [facility] consultant, Dr. Cuenca who recommended a stab incision on the ulnar side of the dorsal PIP to see if we can drain any of it and agrees with a dose of vancomycin here and they will see him tomorrow in clinic. We actually ended up holding the vancomycin as we could not find IV access because of previous IV drug use. Given his lack of elevated inflammatory markers I think this can be treated orally. He was given Bactrim. Note that the computer calls a reaction between Bactrim and lisinopril, but his potassium is on the low side now so I think it is safe. Departure - Departure Disposition: 01 Home, Self Care Clinical Impression: Abscess of finger of left hand Condition: Good Record reviewed to determine appropriate education?: Yes Instructions: ED Abscess IandD Follow-Up: Ari Cuenca MD [Provider Admit Priv/Credential] - Tomorrow Prescriptions: Sulfamethoxazole/Trimethoprim [Sulfamethoxazole-Tmp Ds Tablet] 1 each PO BID #14 tablet Comments: Call Dr. Cuenca's office tomorrow morning. He knows about your case. Let him know that we got quite a bit of pus out with the incision of your finger. A culture is pending and should be done in 48 to 72 hours. Return if worse. Discharge Date/Time: 02/01/19 22:36
[2019-02-01] MEDS ORDERED: BUFFERED LIDOCAINE 10 ML SYRINGE SUBQ STA (21:36)
--- NOTE | 2019-02-01 21:47 | XRAY Report ---
Reason: 3rd finger infection Procedure Date: 02/01/2019 Accession Number: [id number] / [id number] Procedure: XR - Hand 3 View LT CPT Code: FULL RESULT: EXAM: LEFT HAND RADIOGRAPHY. EXAM DATE: 02/01/2019 09:31 PM. CLINICAL HISTORY: Third finger infection with third digit redness and swelling, worsening over last week. COMPARISON: FINGER(S) LT 01/27/2019 1:13 PM. TECHNIQUE: 3 views. FINDINGS: Bones: No acute bone findings are seen. No evidence for acute fracture. Joints: Severe left fifth PIP osteoarthritis with joint space narrowing, osteophytes and bony remodeling. Mild fifth DIP osteoarthritis. No dislocation. Soft Tissues: Diffuse third digit soft tissue swelling most prominent at the proximal aspect. No acute bone findings are seen. IMPRESSION: 1. Diffuse third digit soft tissue swelling most prominent at the proximal aspect. No acute bone findings are seen. 2. Severe fifth PIP osteoarthritis with joint space narrowing, osteophytes and bony remodeling. Mild fifth DIP osteoarthritis. No dislocation. RADIA
[2019-02-01 22:02] LABS: BASOPHILS # (AUTO) 0.1 10^3/uL (0.0-0.1); BASOPHILS % (AUTO) 1.5 %; EOSINOPHILS # (AUTO) 0.1 10^3/uL (0.0-0.7); EOSINOPHILS % (AUTO) 1.2 %; LYMPHOCYTES # (AUTO) 2.8 10^3/uL (1.5-3.5); LYMPHOCYTES % (AUTO) 36.1 %; MEAN CORPUSCULAR HEMOGLOBIN 30.2 pg (27.0-31.0); MEAN CORPUSCULAR HGB CONC 33.1 g/dL (32.0-36.0); MEAN CORPUSCULAR VOLUME 91.3 fL (80.0-94.0); MEAN PLATELET VOLUME 6.5 fL (7.4-11.4); MONOCYTES # (AUTO) 0.6 10^3/uL (0.0-1.0); MONOCYTES % (AUTO) 7.6 %; NEUTROPHILS # (AUTO) 4.2 10^3/uL (1.5-6.6); NEUTROPHILS % (AUTO) 53.6 %; PLT - PLATELET COUNT 281 10^3/uL (130-450); RED BLOOD COUNT 5.28 10^6/uL (4.70-6.10); RED CELL DISTRIBUTION WIDTH 17.7 % (12.0-15.0); WHITE BLOOD COUNT 7.8 x10^3/uL (4.8-10.8)
[2019-02-01 22:19] LABS: ALBUMIN 3.7 g/dL (3.2-5.5); ALBUMIN/GLOBULIN RATIO 0.9 (1.0-2.2); BILIRUBIN,TOTAL 0.6 mg/dL (0.2-1.0); CALCIUM 8.9 mg/dL (8.5-10.3); CREATININE 0.7 mg/dL (0.6-1.2); TOTAL PROTEIN 7.7 g/dL (6.7-8.2)
[2019-02-01] MEDS ORDERED: SULFAMETH/TRIMETH DS 800/160 MG TABLET PO STA (22:27)
[2019-02-01 22:36] VITALS: BP 158/101
== END 2019-02-01 22:36 | disposition home or self-care (01) ==
LOC: ED 20:41
DX: L02.512 Cutaneous abscess of left hand (principal); I10 Essential (primary) hypertension; F17.200 Nicotine dependence, unspecified, uncomplicated
CPT/HCPCS: 10060; 36415; 73130; 80053; 83690; 85025; 85651; 86140; 87070; 87205; 99283; A9270

== ENCOUNTER 2019-04-25 15:47 | Emergency (ER) | payer MEDICARE ==
--- NOTE | 2019-04-25 16:02 | ED Physician Documentation ---
PD HPI SKIN - Stated complaint Stated Complaint: R FOOT PX/FEVER - Chief complaint Chief Complaint: Ext Problem - History obtained from History obtained from: Patient - History of Present Illness Timing - onset: How many weeks ago (1-2 weeks of increased pain, some redness, and some drainage from crease in side of foot. Has had poorly healed wound for 4 months since surgical repair of fracture, with wound infection and revision surgery, weeks of IV abx. Is concerned about recurrent infection with drainage from scar crease.) Timing - details: Gradual onset Location: RLE Quality / character: Painful, Discolored (redness in scar area), Draining (some drainage in mornings) Associated symptoms: Fever (subjective fever feeling today). No: Myalgias, N/V/D Similar symptoms before: Diagnosis (wound infection) Review of Systems Constitutional: reports: Fever. denies: Chills, Myalgias Nose: denies: Rhinorrhea / runny nose, Congestion Throat: denies: Sore throat Respiratory: denies: Cough GI: reports: Nausea. denies: Abdominal Pain, Vomiting, Diarrhea Neurologic: denies: Generalized weakness, Near syncope PD PAST MEDICAL HISTORY - Past Medical History Cardiovascular: Hypertension Respiratory: None Neuro: Other Endocrine/Autoimmune: None GI: None : None HEENT: None Psych: Bipolar disorder, Post traumatic stress disorder Musculoskeletal: None Derm: None - Past Surgical History Past Surgical History: Yes Ortho: Arthroscopic surgery - Present Medications Home Medications: Ambulatory Orders Medication Instructions Recorded Confirmed Gabapentin 1,200 mg PO TID 08/21/16 12/26/18 Lisinopril 40 mg PO DAILY 08/21/16 12/26/18 Quetiapine Fumarate [Seroquel] 100 mg PO DAILY 08/21/16 12/26/18 Modafinil 1 tab PO DAILY 04/03/18 12/26/18 OXcarbazepine [Oxcarbazepine] 1 tab PO BID 04/03/18 12/26/18 Buprenorphine HCl/Naloxone HCl 1 tab 05/27/18 [Suboxone 8-2 mg Sl tab] Amox/Clav 875/125 [Augmentin] 1 each PO Q12H #14 tablet 01/27/19 Sulfamethoxazole/Trimethoprim 1 each PO BID #14 tablet 02/01/19 [Sulfamethoxazole-Tmp Ds Tablet] Doxycycline Hyclate 100 mg PO BID #20 capsule 04/25/19 Mupirocin 1 applic TP TID #15 g 04/25/19 Naproxen 500 mg PO BID #20 tablet 04/25/19 - Allergies Allergies/Adverse Reactions: Allergies Allergy/AdvReac Type Severity Reaction Status Date / Time bee venom protein (honey bee) Allergy Anaphylaxis Verified 04/25/19 15:52 - Social History Does the pt smoke?: Yes Smoking Status: Current every day smoker Does the pt drink ETOH?: Yes Does the pt have substance abuse?: Yes - Immunizations Immunizations are current?: Yes - POLST Patient has POLST: No PD ED PE NORMAL - Vitals Vital signs reviewed: Yes - General General: Alert and oriented X 3, Well developed/nourished, Other (appears in pain from ankle. ) - Cardiac Cardiac: No: RRR (mild tachycardia but regular) - Respiratory Respiratory: Clear bilaterally - Abdomen Abdomen: Soft, Non tender - Derm Derm: Normal color - Extremities Extremities: Other (right ankle with surgical scars and poorly healed thickened skin medial aspect. Some redness of skin. No fluctuance. Tender. Foot and toes not tender. ) Results - Vitals Vitals: Vital Signs - 24 hr 04/25/19 04/25/19 15:49 18:37 Temperature 35.0 C L 36.8 C Heart Rate 115 H 87 Respiratory 19 16 Rate Blood Pressure 147/118 H 130/98 H O2 Saturation 98 95 Oxygen O2 Source Room air - Labs Labs: Laboratory Tests 04/25/19 04/25/19 04/25/19 16:28 16:28 16:28 WBC 10.6 RBC 5.93 Hgb 18.0 Hct 54.1 H MCV 91.2 MCH 30.4 MCHC 33.3 RDW 15.1 H Plt Count 296 MPV 8.3 Neut # (Auto) 6.9 H Lymph # (Auto) 2.9 [place] # (Auto) 0.6 Eos # (Auto) 0.1 Baso # (Auto) 0.1 Absolute Nucleated RBC 0.00 Nucleated RBC % 0.0 ESR 1 Sodium 137 Potassium 3.7 Chloride 100 L Carbon Dioxide 26 Anion Gap 11.0 BUN 7 Creatinine 0.9 Estimated GFR (MDRD) 93 Glucose 137 H Calcium 9.4 Total Bilirubin 1.3 H AST 98 H ALT 69 H Alkaline Phosphatase 133 H Total Protein 8.5 H Albumin 3.6 Globulin 4.9 H Albumin/Globulin Ratio 0.7 L Lipase 22 - Rads (name of study) right ankle Radiology: Prelim report reviewed (prior surgical changes. No focal fluid collection. ), See rad report PD MEDICAL DECISION MAKING - ED course Complexity details: reviewed results (no abscess on CT. WBC and ESR are normal. Does not seem osteo. Can treat for soft tissue infection. ), considered differential, d/w patient Departure - Departure Disposition: 01 Home, Self Care Clinical Impression: Wound infection Condition: Stable Record reviewed to determine appropriate education?: Yes Follow-Up: Kaitlin Gracia ARNP [Primary Care Provider] - [facility] [Provider Group] Prescriptions: Doxycycline Hyclate 100 mg PO BID #20 capsule Mupirocin 1 applic TP TID #15 g Naproxen 500 mg PO BID #20 tablet Comments: Warm soaks of the foot to promote drainage and soften the skin. Use mupirocin antibiotic ointment 2-3 times a day to the wound area. Apply some topical ointment lightly to the area such as A&E ointment to help promote skin healing. Doxycycline oral antibiotic twice daily for 10 days. Follow-up with orthopedics in about a few days to week, call for appointment. Recheck if not improved improving well over the next several days. Discharge Date/Time: 04/25/19 18:43
[2019-04-25] MEDS ORDERED: KETOROLAC 30 MG/ML VIAL IM STA (16:17)
[2019-04-25] MEDS ORDERED: HYDROmorphone 2 MG/ML VIAL IM STA (16:17)
[2019-04-25 16:36] LABS: BASOPHILS # (AUTO) 0.1 10^3/uL (0.0-0.1); BASOPHILS % (AUTO) 1.1 %; EOSINOPHILS # (AUTO) 0.1 10^3/uL (0.0-0.7); EOSINOPHILS % (AUTO) 0.6 %; LYMPHOCYTES # (AUTO) 2.9 10^3/uL (1.5-3.5); LYMPHOCYTES % (AUTO) 27.5 %; MEAN CORPUSCULAR HEMOGLOBIN 30.4 pg (27.0-31.0); MEAN CORPUSCULAR HGB CONC 33.3 g/dL (32.0-36.0); MEAN CORPUSCULAR VOLUME 91.2 fL (80.0-94.0); MEAN PLATELET VOLUME 8.3 fL (7.4-11.4); MONOCYTES # (AUTO) 0.6 10^3/uL (0.0-1.0); MONOCYTES % (AUTO) 5.5 %; NEUTROPHILS # (AUTO) 6.9 10^3/uL (1.5-6.6); NEUTROPHILS % (AUTO) 64.8 %; PLT - PLATELET COUNT 296 10^3/uL (130-450); RED BLOOD COUNT 5.93 10^6/uL (4.70-6.10); RED CELL DISTRIBUTION WIDTH 15.1 % (12.0-15.0); WHITE BLOOD COUNT 10.6 x10^3/uL (4.8-10.8)
[2019-04-25 16:45] LABS: ALBUMIN 3.6 g/dL (3.2-5.5); ALBUMIN/GLOBULIN RATIO 0.7 (1.0-2.2); BILIRUBIN,TOTAL 1.3 mg/dL (0.2-1.0); CALCIUM 9.4 mg/dL (8.5-10.3); CREATININE 0.9 mg/dL (0.6-1.2); TOTAL PROTEIN 8.5 g/dL (6.7-8.2)
--- NOTE | 2019-04-25 17:26 | CT Report ---
Reason: prior post op infections; red now. eval for nikole Procedure Date: 04/25/2019 Accession Number: [id number] / [id number] Procedure: CT - LOWER EXTREMITY WO - RT CPT Code: FULL RESULT: EXAM: RIGHT FOOT CT WITHOUT CONTRAST. EXAM DATE: 04/25/2019 04:46 PM. CLINICAL HISTORY: Erythema with prior postoperative infections. Clinical concern for abscess. COMPARISON: None. TECHNIQUE: Thin-section axial images were acquired of the foot without contrast. Post-processing: Coronal and sagittal reformats. Other: None. In accordance with CT protocol optimization, one or more of the following dose reduction techniques were utilized for this exam: automated exposure control, adjustment of mA and/or KV based on patient size, or use of iterative reconstructive technique. FINDINGS: Bones: The patient has a comminuted fracture of the calcaneus fixed by multiple screws. There is a large coronal fracture plane in which a bone graft is seen. There is some bony bridging at the lateral and superior portions of the fracture site but this is only approximately 40% of the cross-sectional area of the fracture. Moderate osteopenia is present. Moderate tibiotalar osteophytes are present. The posterior subtalar joint has highly irregular cortical surfaces and periarticular cyst formation. As a result of depression of the calcaneus from the fracture, the fibula is almost articulating with the calcaneus. There is an evidence of an old screw track in the cuneiforms. No acute fractures. Prominent capsular spurring is at the talonavicular joint. The patient has an old healed fracture of the posterior malleolus and potentially the distal fibula. Ligaments: Areas of heterotopic ossification in the calcaeofibular and deep deltoid ligaments are consistent with prior injuries of those structures. Musculature: There is moderate fatty atrophy of intrinsic musculature of the foot. Other: There is a prominent focus of subcutaneous fat medial to the Achilles tendon. This is immediately adjacent to some soft tissue thickening at the posterior portion of the heel. This fat could represent a lipoma though more likely it is a subcutaneous graft at the site of prior subcutaneous deficiency. Just inferior to this area of fat at the medial portion of the calcaneus, there is severe subcutaneous thickening and surface irregularity. On this noncontrast examination, there are no drainable fluid collections. IMPRESSION: 1. No drainable fluid collections on this noncontrast CT. Note that noncontrast CT is limited for evaluation of soft tissue infection. 2. Probable subcutaneous flap at the posterior medial portion of the ankle. 3. Probable ulceration inferior to the flap with cellulitis. RADIA
[2019-04-25] MEDS ORDERED: DOXYCYCLINE 100 MG TABLET PO STA (17:53)
[2019-04-25] MEDS ORDERED: MUPIROCIN 2% OINT 1 GM TOP STA (17:53)
[2019-04-25 18:38] VITALS: BP 130/98
== END 2019-04-25 18:43 | disposition home or self-care (01) ==
LOC: ED 15:47
DX: T81.49XA Infection following a procedure, other surgical site, initial encounter (principal); L08.9 Local infection of the skin and subcutaneous tissue, unspecified; I10 Essential (primary) hypertension; F17.200 Nicotine dependence, unspecified, uncomplicated
CPT/HCPCS: 36415; 73700; 80053; 83690; 85025; 85651; 96372; 99284; A9270; J1170

== ENCOUNTER 2019-05-21 03:51 | Emergency (ER) | payer MEDICARE ==
--- NOTE | 2019-05-21 04:24 | ED Physician Documentation ---
History of Present Illness - Stated complaint Stated Complaint: FT SWELLING/PX - Chief complaint Chief Complaint: Ext Problem - History obtained from History obtained from: Patient - History of Present Illness Timing: Today Pain level now: 4 Improved by: rest Worsened by: palpation, weight-bearing - Additonal information Additional information: c/o sudden onset right foot pain this morning when he went to stand on it. Review of Systems Constitutional: reports: Reviewed and negative Skin: reports: Reviewed and negative Musculoskeletal: reports: Extremity pain, Extremity swelling, Pain with weight bearing PD PAST MEDICAL HISTORY - Past Medical History Cardiovascular: Hypertension Respiratory: None Neuro: Other Endocrine/Autoimmune: None GI: None : None HEENT: None Psych: Bipolar disorder, Post traumatic stress disorder Musculoskeletal: None Derm: None - Past Surgical History Past Surgical History: Yes Ortho: Arthroscopic surgery - Present Medications Home Medications: Ambulatory Orders Medication Instructions Recorded Confirmed Gabapentin 1,200 mg PO TID 08/21/16 12/26/18 Lisinopril 40 mg PO DAILY 08/21/16 12/26/18 Quetiapine Fumarate [Seroquel] 100 mg PO DAILY 08/21/16 12/26/18 Modafinil 1 tab PO DAILY 04/03/18 12/26/18 OXcarbazepine [Oxcarbazepine] 1 tab PO BID 04/03/18 12/26/18 Buprenorphine HCl/Naloxone HCl 1 tab 05/27/18 [Suboxone 8-2 mg Sl tab] Amox/Clav 875/125 [Augmentin] 1 each PO Q12H #14 tablet 01/27/19 Sulfamethoxazole/Trimethoprim 1 each PO BID #14 tablet 02/01/19 [Sulfamethoxazole-Tmp Ds Tablet] Doxycycline Hyclate 100 mg PO BID #20 capsule 04/25/19 Mupirocin 1 applic TP TID #15 g 04/25/19 Naproxen 500 mg PO BID #20 tablet 04/25/19 Clindamycin HCl [Clindamycin 300MG 300 mg PO Q6H #28 capsule 05/21/19 CAP] - Allergies Allergies/Adverse Reactions: Allergies Allergy/AdvReac Type Severity Reaction Status Date / Time bee venom protein (honey bee) Allergy Anaphylaxis Verified 05/21/19 04:01 - Social History Does the pt smoke?: Yes Smoking Status: Current every day smoker Does the pt drink ETOH?: Yes Does the pt have substance abuse?: Yes - Immunizations Immunizations are current?: Yes - POLST Patient has POLST: No PD ED PE NORMAL - Vitals Vital signs reviewed: Yes - General General: Alert and oriented X 3, No acute distress, Well developed/nourished - Derm Derm: Normal color, Warm and dry, No rash - Extremities Extremities: No tenderness to palpate, No calf tenderness / cord, Other (right ankle had moderate swelling and chronic-appearing crusting along surgical site (old) lateral aspect. the skin graft (primarily posterior) is c/d/i) Results - Vitals Vitals: Oxygen O2 Source Room air - Labs Labs: Microbiology 05/21/19 07:40 Wound Culture - Preliminary Foot - Right Staphylococcus Aureus Laboratory Tests 05/21/19 05/21/19 05/21/19 05:10 05:10 05:10 WBC 11.9 H RBC 5.71 Hgb 17.4 Hct 52.3 H MCV 91.6 MCH 30.5 MCHC 33.3 RDW 15.7 H Plt Count 270 MPV 8.5 Neut # (Auto) 7.1 H Lymph # (Auto) 3.4 [place] # (Auto) 1.1 H Eos # (Auto) 0.1 Baso # (Auto) 0.1 Absolute Nucleated RBC 0.00 Nucleated RBC % 0.0 ESR 1 Sodium 138 Potassium 3.8 Chloride 99 L Carbon Dioxide 26 Anion Gap 13.0 BUN 7 Creatinine 0.7 Estimated GFR (MDRD) 124 Glucose 121 H Calcium 8.9 Total Bilirubin 0.6 AST 50 H ALT 38 Alkaline Phosphatase 124 H Total Protein 7.8 Albumin 3.4 Globulin 4.3 H Albumin/Globulin Ratio 0.8 L Lipase 18 L PD MEDICAL DECISION MAKING - ED course Complexity details: reviewed old records, reviewed results, re-evaluated patient, considered differential, d/w patient Departure - Departure Disposition: 01 Home, Self Care Clinical Impression: Pain of lower extremity Condition: Good Instructions: ED Acute Pain [facility] Follow-Up: Kaitlin Gracia ARNP [Primary Care Provider] - (Call to arrange for next available appointment) Prescriptions: Clindamycin HCl [Clindamycin 300MG CAP] 300 mg PO Q6H #28 capsule Discharge Date/Time: 05/21/19 07:54
[2019-05-21 05:25] LABS: BASOPHILS # (AUTO) 0.1 10^3/uL (0.0-0.1); BASOPHILS % (AUTO) 1.2 %; EOSINOPHILS # (AUTO) 0.1 10^3/uL (0.0-0.7); HGB - HEMOGLOBIN 17.4 g/dL (14.0-18.0); LYMPHOCYTES # (AUTO) 3.4 10^3/uL (1.5-3.5); LYMPHOCYTES % (AUTO) 28.3 %; MEAN CORPUSCULAR HEMOGLOBIN 30.5 pg (27.0-31.0); MEAN CORPUSCULAR HGB CONC 33.3 g/dL (32.0-36.0); MEAN CORPUSCULAR VOLUME 91.6 fL (80.0-94.0); MEAN PLATELET VOLUME 8.5 fL (7.4-11.4); MONOCYTES # (AUTO) 1.1 10^3/uL (0.0-1.0); MONOCYTES % (AUTO) 9.1 %; NEUTROPHILS # (AUTO) 7.1 10^3/uL (1.5-6.6); NEUTROPHILS % (AUTO) 59.8 %; PLT - PLATELET COUNT 270 10^3/uL (130-450); RED BLOOD COUNT 5.71 10^6/uL (4.70-6.10); RED CELL DISTRIBUTION WIDTH 15.7 % (12.0-15.0); WHITE BLOOD COUNT 11.9 x10^3/uL (4.8-10.8)
--- NOTE | 2019-05-21 05:27 | XRAY Report ---
Reason: pain, swelling Procedure Date: 05/21/2019 Accession Number: [id number] / [id number] Procedure: XR - Ankle 3 View RT CPT Code: FULL RESULT: EXAM: RIGHT ANKLE RADIOGRAPHY EXAM DATE: 05/21/2019 05:18 AM. CLINICAL HISTORY: Pain, swelling. COMPARISON: ANKLE 3 VIEW RT 05/27/2018 12:26 PM. TECHNIQUE: 3 views. FINDINGS: Bones: Osteopenia. Old ununited fracture fragments are seen at the medial and lateral malleoli. Multiple screws in the calcaneus. No acute fracture seen. Joints: No dislocation seen. Ankle mortise appears intact. No definite joint effusion. Soft Tissues: Soft tissue swelling. IMPRESSION: 1. 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 2. Postoperative changes in the calcaneus. 3. Soft tissue swelling. RADIA
[2019-05-21 05:40] LABS: ALBUMIN 3.4 g/dL (3.2-5.5); ALBUMIN/GLOBULIN RATIO 0.8 (1.0-2.2); BILIRUBIN,TOTAL 0.6 mg/dL (0.2-1.0); CALCIUM 8.9 mg/dL (8.5-10.3); CREATININE 0.7 mg/dL (0.6-1.2); TOTAL PROTEIN 7.8 g/dL (6.7-8.2)
[2019-05-21] MEDS ORDERED: CLINDAMYCIN 150 MG CAPSULE PO STA (06:53)
[2019-05-21 07:53] VITALS: BP 153/102
== END 2019-05-21 07:54 | disposition home or self-care (01) ==
LOC: ED 03:51
DX: M25.571 Pain in right ankle and joints of right foot (principal); M79.89 Other specified soft tissue disorders; I10 Essential (primary) hypertension; F17.200 Nicotine dependence, unspecified, uncomplicated
CPT/HCPCS: 36415; 73610; 80053; 83690; 85025; 85651; 87070; 87181; 87205; 99283; 99284; A9270

== ENCOUNTER 2019-06-27 01:20 | Emergency (ER) | payer MEDICARE ==
--- NOTE | 2019-06-27 02:10 | ED Physician Documentation ---
PD HPI LOWER EXT INJURY - Stated complaint Stated Complaint: RIGHT FOOR PX,SWOLLEN - Chief complaint Chief Complaint: Ext Problem - History obtained from History obtained from: Patient - History of Present Illness PD HPI LOW EXT INJURY LOCATION: Right, Ankle Timing - details: Gradual onset Similar symptoms before: Diagnosis Recently seen: Emergency Dept - Additional information Additional information: This is a 39-year-old man who fractured his calcaneus and medial and lateral malleolus about 2 years ago and an injury. Was recommended that he have an amputation but he declined it at the time and now has been suffering with chronic issues with the ankle and nonhealing of the fractures. Last surgery he had on it was 6 or 7 months ago and they removed 2 of the rods in the leg and he feels like the infection is now "out of control" is just getting worse despite 2 rounds of oral antibiotics. He said there is way more pain than normal in the ankle and he can push pus out of the incision site. He is been taking illicit Percocet [id number] at home for pain because he cannot get prescriptions anywhere. All of his previous surgeries were done at [facility]. Does have a history of substance abuse. Review of Systems Constitutional: denies: Fever GI: denies: Vomiting Musculoskeletal: reports: Extremity pain, Extremity swelling, Joint swelling PD PAST MEDICAL HISTORY - Past Medical History Cardiovascular: Hypertension Respiratory: None Neuro: Other Endocrine/Autoimmune: None GI: None : None HEENT: None Psych: Bipolar disorder, Post traumatic stress disorder Musculoskeletal: None Derm: None - Past Surgical History Past Surgical History: Yes Ortho: Arthroscopic surgery - Present Medications Home Medications: Ambulatory Orders Medication Instructions Recorded Confirmed Gabapentin 1,200 mg PO TID 08/21/16 12/26/18 Lisinopril 40 mg PO DAILY 08/21/16 12/26/18 Quetiapine Fumarate [Seroquel] 100 mg PO DAILY 08/21/16 12/26/18 Modafinil 1 tab PO DAILY 04/03/18 12/26/18 OXcarbazepine [Oxcarbazepine] 1 tab PO BID 04/03/18 12/26/18 Buprenorphine HCl/Naloxone HCl 1 tab 05/27/18 [Suboxone 8-2 mg Sl tab] Amox/Clav 875/125 [Augmentin] 1 each PO Q12H #14 tablet 01/27/19 Sulfamethoxazole/Trimethoprim 1 each PO BID #14 tablet 02/01/19 [Sulfamethoxazole-Tmp Ds Tablet] Doxycycline Hyclate 100 mg PO BID #20 capsule 04/25/19 Mupirocin 1 applic TP TID #15 g 04/25/19 Naproxen 500 mg PO BID #20 tablet 04/25/19 Clindamycin HCl [Clindamycin 300MG 300 mg PO Q6H #28 capsule 05/21/19 CAP] Oxycodone HCl/Acetaminophen 1 each PO Q4HR #10 tablet 06/27/19 [Oxycodone-Acetaminophen 5-325] - Allergies Allergies/Adverse Reactions: Allergies Allergy/AdvReac Type Severity Reaction Status Date / Time bee venom protein (honey bee) Allergy Anaphylaxis Verified 06/27/19 01:31 - Social History Does the pt smoke?: Yes Smoking Status: Current every day smoker Does the pt drink ETOH?: Yes Does the pt have substance abuse?: Yes - Immunizations Immunizations are current?: Yes - POLST Patient has POLST: No PD ED PE NORMAL - Vitals Vital signs reviewed: Yes - General General: Alert and oriented X 3, No acute distress, Well developed/nourished - HEENT HEENT: Atraumatic, Other (No scleral icterus) - Extremities Extremities: Other (There is chronic deformity of the right ankle and foot. Over the medial malleolus is a erythematous bulging fluctuant area that leads up to this scar along the medial foot and when he pushes on that he is able to express pus from underneath the incision site. The skin in that area is very thickened. Is a barely palpable dorsalis pedis pulse in the foot. Sensation is intact to light touch. He ambulates with a cane.) - Neuro Neuro: Alert and oriented X 3, No sensory deficit, Normal speech Results - Vitals Vitals: Vital Signs - 24 hr 06/27/19 06/27/19 01:25 01:42 Temperature 36.8 C Heart Rate 104 H 100 Respiratory 16 16 Rate Blood Pressure 160/117 H 155/100 H O2 Saturation 97 98 Oxygen O2 Source Room air - Labs Labs: Laboratory Tests 06/27/19 06/27/19 06/27/19 02:59 02:59 02:59 WBC 12.4 H RBC 5.51 Hgb 16.6 Hct 50.3 MCV 91.3 MCH 30.1 MCHC 33.0 RDW 14.6 Plt Count 272 MPV 8.5 Neut # (Auto) 7.6 H Lymph # (Auto) 3.6 H [place] # (Auto) 0.8 Eos # (Auto) 0.1 Baso # (Auto) 0.2 H Absolute Nucleated RBC 0.00 Nucleated RBC % 0.0 Sodium 138 Potassium 3.7 Chloride 101 Carbon Dioxide 27 Anion Gap 10.0 BUN 8 Creatinine 0.7 Estimated GFR (MDRD) 124 Glucose 103 H Lactic Acid 1.1 Calcium 9.5 Total Bilirubin 1.2 H AST 94 H ALT 79 H Alkaline Phosphatase 102 Total Protein 8.0 Albumin 3.8 Globulin 4.2 Albumin/Globulin Ratio 0.9 L Lipase 25 PD MEDICAL DECISION MAKING - ED course Complexity details: reviewed old records, reviewed results, d/w patient ED course: The patient's white blood cell count is mildly elevated at 12.4. His x-rays show what looks like some shifting of the medial malleolus nonhealed fracture but there is not a definitive destructive process in the bone. Blood cultures were obtained and I had ordered wound culture but the patient inadvertently was discharged before that wound culture was actually obtained. He is been contacted now and stated that he would return to the emergency department und erstanding the importance of the cultures. Prior to his discharge I did talk to the Ortho trauma team at [facility] with Dr. Adarsh Silva. They are to follow him up in the clinic this week. Organ to hold off on antibiotics although they asked me to give him a prescription of Bactrim in case he develops fever or spreading redness around the wound. The patient stated understanding and will hold the Bactrim unless things are worsening. Departure - Departure Disposition: 01 Home, Self Care Clinical Impression: Non-healing fracture Condition: Good Instructions: Chronic Pain, ED Chronic Pain Management Follow-Up: Kaitlin Gracia ARNP [Primary Care Provider] - [facility],Ortho Trauma [Other] Prescriptions: Oxycodone HCl/Acetaminophen [Oxycodone-Acetaminophen 5-325] 1 each PO Q4HR #10 tablet Comments: Minimize weightbearing as much as possible. You are given a prescription for Bactrim antibiotic but do not take this unless you develop fever or significant increase in the redness and swelling of the right lower extremity before you see the Ortho clinic. You need to contact the [facility] trauma clinic and they will get you into the schedule to be seen this week. Their phone number is [phone]. We can only provide a prescription for a very limited number of pain pills. Any further pain medications need to come from your primary care provider or the [facility] trauma team.
[2019-06-27] MEDS ORDERED: SODIUM CHLORIDE 0.9% 1,000 ML IV ONE (02:18)
[2019-06-27] MEDS ORDERED: KETOROLAC 30 MG/ML VIAL IVP STA (02:18)
--- NOTE | 2019-06-27 03:02 | XRAY Report ---
Reason: right ankle pain Procedure Date: 06/27/2019 Accession Number: [id number] / [id number] Procedure: XR - Ankle 3 View RT CPT Code: FULL RESULT: EXAM: RIGHT ANKLE RADIOGRAPHY EXAM DATE: 06/27/2019 02:47 AM. CLINICAL HISTORY: Right ankle pain. COMPARISON: ANKLE 3 VIEW RT 05/21/2019 4:59 AM. TECHNIQUE: 3 views. FINDINGS: Bones: Previous screw fixation of the calcaneus. No evidence of acute fracture. Joints: Degenerative changes. Soft Tissues: Lateral greater than medial soft tissue swelling. Surgical clips in the posterior soft tissues. IMPRESSION: Soft tissue swelling. Previous calcaneal fixation. RADIA
[2019-06-27 03:04] LABS: BASOPHILS # (AUTO) 0.2 10^3/uL (0.0-0.1); BASOPHILS % (AUTO) 1.2 %; EOSINOPHILS # (AUTO) 0.1 10^3/uL (0.0-0.7); EOSINOPHILS % (AUTO) 1.1 %; HGB - HEMOGLOBIN 16.6 g/dL (14.0-18.0); LYMPHOCYTES # (AUTO) 3.6 10^3/uL (1.5-3.5); LYMPHOCYTES % (AUTO) 29.4 %; MEAN CORPUSCULAR HEMOGLOBIN 30.1 pg (27.0-31.0); MEAN CORPUSCULAR VOLUME 91.3 fL (80.0-94.0); MEAN PLATELET VOLUME 8.5 fL (7.4-11.4); MONOCYTES # (AUTO) 0.8 10^3/uL (0.0-1.0); MONOCYTES % (AUTO) 6.8 %; NEUTROPHILS # (AUTO) 7.6 10^3/uL (1.5-6.6); PLT - PLATELET COUNT 272 10^3/uL (130-450); RED BLOOD COUNT 5.51 10^6/uL (4.70-6.10); RED CELL DISTRIBUTION WIDTH 14.6 % (12.0-15.0); WHITE BLOOD COUNT 12.4 x10^3/uL (4.8-10.8)
[2019-06-27 03:18] LABS: ALBUMIN 3.8 g/dL (3.2-5.5); ALBUMIN/GLOBULIN RATIO 0.9 (1.0-2.2); BILIRUBIN,TOTAL 1.2 mg/dL (0.2-1.0); CALCIUM 9.5 mg/dL (8.5-10.3); CREATININE 0.7 mg/dL (0.6-1.2)
[2019-06-27 05:59] VITALS: BP 149/98
== END 2019-06-27 05:30 | disposition home or self-care (01) ==
LOC: ED 01:20
DX: S92.001G Unspecified fracture of right calcaneus, subsequent encounter for fracture with delayed healing (principal); S82.61XG Displaced fracture of lateral malleolus of right fibula, subsequent encounter for closed fracture with delayed healing; X58.XXXD Exposure to other specified factors, subsequent encounter; I10 Essential (primary) hypertension; F17.200 Nicotine dependence, unspecified, uncomplicated
CPT/HCPCS: 36415; 80053; 83605; 83690; 85025; 87040; 99283; 99284

== ENCOUNTER 2019-08-19 05:39 | Emergency (ER) | payer MEDICARE ==
--- NOTE | 2019-08-19 06:04 | ED Physician Documentation ---
History of Present Illness - Stated complaint Stated Complaint: WET CAST - Chief complaint Chief Complaint: General - Additonal information Additional information: This is a 39-year-old male who presents with a wet cast. 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 He was walking outside yesterday during the rain and his cast got wet so he comes in today requesting that his cast is removed. It was supposed to be replaced yesterday in clinic. He denies any fever. The cast is been wet for around 24 hours Review of Systems Constitutional: denies: Fever Cardiac: denies: Chest pain / pressure GI: denies: Abdominal Pain Skin: reports: Laceration (s) PD PAST MEDICAL HISTORY - Past Medical History Cardiovascular: Hypertension Respiratory: None Neuro: Other Endocrine/Autoimmune: None GI: None : None HEENT: None Psych: Bipolar disorder, Post traumatic stress disorder Musculoskeletal: None Derm: None - Past Surgical History Past Surgical History: Yes Ortho: Arthroscopic surgery - Present Medications Home Medications: Ambulatory Orders Medication Instructions Recorded Confirmed Gabapentin 1,200 mg PO TID 08/21/16 08/19/19 Lisinopril 40 mg PO DAILY 08/21/16 08/19/19 Quetiapine Fumarate [Seroquel] 100 mg PO DAILY 08/21/16 08/19/19 Modafinil 1 tab PO DAILY 04/03/18 08/19/19 OXcarbazepine [Oxcarbazepine] 1 tab PO BID 04/03/18 08/19/19 Buprenorphine HCl/Naloxone HCl 1 tab PO TID 05/27/18 08/19/19 [Suboxone 8-2 mg Sl tab] Sulfamethoxazole/Trimethoprim 1 each PO BID #14 tablet 02/01/19 08/19/19 [Sulfamethoxazole-Tmp Ds Tablet] Doxycycline Hyclate 100 mg PO BID #20 capsule 04/25/19 08/19/19 Mupirocin 1 applic TP TID #15 g 04/25/19 08/19/19 Naproxen 500 mg PO BID #20 tablet 04/25/19 08/19/19 Oxycodone HCl/Acetaminophen 1 each PO Q4HR #10 tablet 06/27/19 08/19/19 [Oxycodone-Acetaminophen 5-325] - Allergies Allergies/Adverse Reactions: Allergies Allergy/AdvReac Type Severity Reaction Status Date / Time bee venom protein (honey bee) Allergy Anaphylaxis Verified 08/19/19 05:47 - Social History Does the pt smoke?: Yes Smoking Status: Current every day smoker Does the pt drink ETOH?: Yes Does the pt have substance abuse?: Yes - Immunizations Immunizations are current?: Yes - POLST Patient has POLST: No PD ED PE NORMAL - Vitals Vital signs reviewed: Yes - General General: Alert and oriented X 3 - HEENT HEENT: Atraumatic - Cardiac Cardiac: RRR - Respiratory Respiratory: No respiratory distress - Abdomen Abdomen: Soft, Non distended - Extremities Extremities: Other (Over the medial aspect of the right ankle there is a surgical incisions extends down near the medial malleolus and then in an L-shap ed fashion. It is approximated with sutures, but the wound edges themselves are not healed, they appear open. There is a small amount of what appears to be purulent drainage or very macerated tissue. The skin around the foot is slightly macerated and the bandages which were removed from the foot in cast are soaking wet. The cast itself was quite dirty with dirt along the base of it. He is able to wiggle all of his toes, his DP pulses are brisk, and I am not able to express purulent drainage from the wound itself when I press on it. There is no visible bone.) - Neuro Neuro: Alert and oriented X 3 Results - Vitals Vitals: Vital Signs - 24 hr 08/19/19 08/19/19 05:40 07:25 Temperature 36.0 C L 36.8 C Heart Rate 94 90 Respiratory 18 16 Rate Blood Pressure 163/111 H 149/116 H O2 Saturation 95 96 Oxygen O2 Source Room air - Labs Labs: Laboratory Tests 08/19/19 08/19/19 06:46 06:46 WBC 9.2 RBC 5.55 Hgb 17.0 Hct 50.8 MCV 91.5 MCH 30.6 MCHC 33.5 RDW 13.7 Plt Count 309 MPV 8.2 Neut # (Auto) 5.3 Lymph # (Auto) 3.1 [place] # (Auto) 0.6 Eos # (Auto) 0.1 Baso # (Auto) 0.1 Absolute Nucleated RBC 0.00 Nucleated RBC % 0.0 Sodium 138 Potassium 3.9 Chloride 99 L Carbon Dioxide 28 Anion Gap 11.0 BUN 5 L Creatinine 0.8 Estimated GFR (MDRD) 107 Glucose 99 Calcium 9.0 C-Reactive Protein 1.8 H - Rads (name of study) XR ankle R Radiology: Other (Postoperative calcaneal changes, old ununited fractures of the medial lateral malleoli, unchanged in prior exams, similar soft tissue swelling around the ankle.) PD MEDICAL DECISION MAKING - ED course Complexity details: considered differential (Splint/cast replacement, wound infection, non-union of fracture, osteomyelitis, hardware infection) ED course: Patient has a longstanding history of poor fracture healing, hardware infections who presents status post surgery for hardware infection 2 weeks ago at [facility], but he missed his follow-up appointment with Ortho and infectious disease yesterday. He comes in today because he got his cast wet and he was hoping to get the cast removed and a new one replaced. On removal of the cast/splint, he has a wound which looks macerated and dehisced in places, the macerated tissue is present over the foot where it has been sitting in wet bandages. The foot is neurovascularly intact. X-ray was obtained and shows no changes from prior. Labs show no leukocytosis, his CRP is very mildly elevated. I consulted the orthopedic service at [facility] and sent them photos of the wound. I spoke with his orthopedist Dr. Jessica, who has performed patient's surgeries, he stated that given patient's longstanding history of these wounds, the fact that he is nontoxic-appearing, and the fact that he tends to direct his own care and is not always willing to stay in the hospital, he recommends patient either be transferred to [facility] for assessment and potential washout today, or resplinted in our ED and have close follow-up in clinic in the next week. I spoke with the patient about these options, and he strongly prefers to be resplinted and to go home. He states he will be able to follow-up in ortho clinic next . The wound was redressed with Xeroform gauze, the area was padded with gauze, and then a posterior slab short leg splint with a stirrup was placed. I discussed return precautions with increasing pain, fever, or any other concerning symptoms, and emphasized the importance of orthopedic follow- up. Patient agreed this plan and was discharged home nonweightbearing status Departure - Departure Disposition: 01 Home, Self Care Clinical Impression: Ankle wound Qualifiers: Encounter type: initial encounter Laterality: right Qualified Code(s): S91.001A - Unspecified open wound, right ankle, initial encounter
[2019-08-19 06:53] LABS: BASOPHILS # (AUTO) 0.1 10^3/uL (0.0-0.1); BASOPHILS % (AUTO) 1.1 %; EOSINOPHILS # (AUTO) 0.1 10^3/uL (0.0-0.7); EOSINOPHILS % (AUTO) 1.1 %; LYMPHOCYTES # (AUTO) 3.1 10^3/uL (1.5-3.5); LYMPHOCYTES % (AUTO) 33.7 %; MEAN CORPUSCULAR HEMOGLOBIN 30.6 pg (27.0-31.0); MEAN CORPUSCULAR HGB CONC 33.5 g/dL (32.0-36.0); MEAN CORPUSCULAR VOLUME 91.5 fL (80.0-94.0); MEAN PLATELET VOLUME 8.2 fL (7.4-11.4); MONOCYTES # (AUTO) 0.6 10^3/uL (0.0-1.0); MONOCYTES % (AUTO) 6.3 %; NEUTROPHILS # (AUTO) 5.3 10^3/uL (1.5-6.6); NEUTROPHILS % (AUTO) 57.4 %; PLT - PLATELET COUNT 309 10^3/uL (130-450); RED BLOOD COUNT 5.55 10^6/uL (4.70-6.10); RED CELL DISTRIBUTION WIDTH 13.7 % (12.0-15.0); WHITE BLOOD COUNT 9.2 x10^3/uL (4.8-10.8)
[2019-08-19 07:12] LABS: CREATININE 0.8 mg/dL (0.6-1.2); CRP - C-REACTIVE PROTEIN 1.8 mg/dL (0-1.0)
--- NOTE | 2019-08-19 07:12 | XRAY Report ---
Reason: s/p surgery, wound appears dehisced Procedure Date: 08/19/2019 Accession Number: [id number] / [id number] Procedure: XR - Ankle 3 View RT CPT Code: Final Report FULL RESULT: EXAM: RIGHT ANKLE RADIOGRAPHY EXAM DATE: 08/19/2019 06:23 AM. CLINICAL HISTORY: S/p surgery, wound appears dehisced. COMPARISON: ANKLE 3 VIEW RT 06/27/2019 2:29 AM ANKLE 3 VIEW RT 05/21/2019 4:59 AM. TECHNIQUE: 3 nonweightbearing views. FINDINGS: Bones: There are old ununited fracture fragments medial and lateral malleoli, as seen on prior exams. There are multiple screws in the calcaneus. Diffuse osteopenia is present. No acute fracture identified. Joints: No subluxation or dislocation. There are degenerative joint changes of the midfoot and hindfoot. Soft Tissues: There is regional soft tissue swelling around the ankle, similar to prior. IMPRESSION: 1. Postoperative changes of the calcaneus. 2. 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 3. Soft tissue swelling around the ankle, similar to prior. RADIA
[2019-08-19 07:26] VITALS: BP 149/116
== END 2019-08-19 08:26 | disposition home or self-care (01) ==
LOC: ED 05:39
DX: T81.31XA Disruption of external operation (surgical) wound, not elsewhere classified, initial encounter (principal); Y83.8 Other surgical procedures as the cause of abnormal reaction of the patient, or of later complication, without mention of misadventure at the time of the procedure; I10 Essential (primary) hypertension; F17.200 Nicotine dependence, unspecified, uncomplicated
CPT/HCPCS: 36415; 80048; 85025; 86140; 99284

== ENCOUNTER 2019-09-06 23:09 | Outpatient (CLI) | payer MEDICARE | END 2019-09-06 23:59 | disposition EMS.NT | LOC: EMS 23:09 | PROVIDERS: ATTEND Surgery | DX: S01.81XA Laceration without foreign body of other part of head, initial encounter (principal); Y00.XXXA Assault by blunt object, initial encounter ==

== ENCOUNTER 2019-11-20 13:17 | Emergency (ER) | payer MEDICARE ==
[2019-11-20] MEDS ORDERED: HYDROmorphone 1 MG/ML CARPUJECT IVP STA (13:42)
[2019-11-20] MEDS ORDERED: KETOROLAC 30 MG/ML VIAL IVP STA (13:42)
--- NOTE | 2019-11-20 13:42 | ED Physician Documentation ---
PD HPI LOWER EXT INJURY - Stated complaint Stated Complaint: RT FOOT PX - Chief complaint Chief Complaint: Wound - History obtained from History obtained from: Patient (39-year-old gentleman with a remote trauma of the right ankle with hardware in place. He has had trouble with recurrent infections and for the last 2 months has had increasing pain redness and drainage from the medial calcaneus and right ankle. Denies fevers or chills. H e has ongoing drug abuse and is using heroin via smoking. Also alcohol.) Review of Systems Ten Systems: 10 systems reviewed and negative Constitutional: denies: Fever, Chills Cardiac: denies: Chest pain / pressure, Palpitations Respiratory: denies: Dyspnea, Cough PD PAST MEDICAL HISTORY - Past Medical History Cardiovascular: Hypertension Respiratory: None Neuro: Other Endocrine/Autoimmune: None GI: None : None HEENT: None Psych: Bipolar disorder, Post traumatic stress disorder Musculoskeletal: None Derm: None - Past Surgical History Past Surgical History: Yes Ortho: Arthroscopic surgery - Present Medications Home Medications: Ambulatory Orders Medication Instructions Recorded Confirmed Gabapentin 1,200 mg PO TID 08/21/16 08/19/19 Lisinopril 40 mg PO DAILY 08/21/16 08/19/19 Quetiapine Fumarate [Seroquel] 100 mg PO DAILY 08/21/16 08/19/19 OXcarbazepine [Oxcarbazepine] 1 tab PO BID 04/03/18 08/19/19 modafiniL [Modafinil] 1 tab PO DAILY 04/03/18 08/19/19 Buprenorphine HCl/Naloxone HCl 1 tab PO TID 05/27/18 08/19/19 [Suboxone 8-2 mg Sl tab] Sulfamethoxazole/Trimethoprim 1 each PO BID #14 tablet 02/01/19 08/19/19 [Sulfamethoxazole-Tmp Ds Tablet] Doxycycline Hyclate 100 mg PO BID #20 capsule 04/25/19 08/19/19 Mupirocin 1 applic TP TID #15 g 04/25/19 08/19/19 Naproxen 500 mg PO BID #20 tablet 04/25/19 08/19/19 Oxycodone HCl/Acetaminophen 1 each PO Q4HR #10 tablet 06/27/19 08/19/19 [Oxycodone-Acetaminophen 5-325] - Allergies Allergies/Adverse Reactions: Allergies Allergy/AdvReac Type Severity Reaction Status Date / Time bee venom protein (honey bee) Allergy Anaphylaxis Verified 08/19/19 05:47 - Social History Does the pt smoke?: Yes Smoking Status: Current every day smoker Does the pt drink ETOH?: Yes Does the pt have substance abuse?: Yes - Family History Family history: reports: Non contributory - Immunizations Immunizations are current?: Yes - POLST Patient has POLST: No PD ED PE NORMAL - Vitals Vital signs reviewed: Yes - General General: Alert and oriented X 3, Other (He appears slightly drunk and high with bloodshot eyes) - HEENT HEENT: PERRL, EOMI - Neck Neck: Supple, no meningeal sign, No bony TTP - Cardiac Cardiac: RRR, No murmur - Respiratory Respiratory: No respiratory distress, Clear bilaterally - Abdomen Abdomen: Normal bowel sounds, Soft, Non tender - Back Back: No CVA TTP, No spinal TTP - Derm Derm: Normal color, Warm and dry - Extremities Extremities: Other (There is a deformity of the right ankle and calcaneus with what appears to be chronic cellulitis and some fluctuance on the medial surface of the right ankle with foul smell. There is cellulitis from the mid abreu down to the calcaneus.) - Neuro Neuro: Alert and oriented X 3, Normal speech Results - Vitals Vitals: Vital Signs - 24 hr 11/20/19 11/20/19 11/20/19 13:20 14:18 15:02 Temperature 36.5 C Heart Rate 107 H 78 81 Respiratory 18 16 16 Rate Blood Pressure 146/105 H 135/103 H 129/96 H O2 Saturation 95 96 96 11/20/19 16:17 Temperature Heart Rate 74 Respiratory 16 Rate Blood Pressure 119/76 O2 Saturation 96 Oxygen O2 Source Room air - Labs Labs: Laboratory Tests 11/20/19 11/20/19 11/20/19 14:05 14:05 14:05 WBC 15.3 H RBC 5.57 Hgb 17.7 Hct 50.9 MCV 91.4 MCH 31.8 H MCHC 34.8 RDW 15.2 H Plt Count 298 MPV 8.0 Neut # (Auto) 8.9 H Lymph # (Auto) 4.5 H [place] # (Auto) 1.2 H Eos # (Auto) 0.4 Baso # (Auto) 0.2 H Absolute Nucleated RBC 0.00 Nucleated RBC % 0.0 ESR Sodium 136 Potassium 4.0 Chloride 97 L Carbon Dioxide 26 Anion Gap 13.0 BUN 6 Creatinine 0.9 Estimated GFR (MDRD) 93 Glucose 121 H Lactic Acid 1.8 Calcium 9.1 Total Bilirubin 1.2 H AST 29 ALT 27 Alkaline Phosphatase 105 C-Reactive Protein 1.5 H Total Protein 8.3 H Albumin 3.8 Globulin 4.5 H Albumin/Globulin Ratio 0.8 L Lipase 20 L Urine Opiates Screen Ur Oxycodone Screen Urine Methadone Screen Ur Propoxyphene Screen Ur Barbiturates Screen Ur Tricyclics Screen Ur Phencyclidine Scrn Ur Amphetamine Screen U Methamphetamines Scrn U Benzodiazepines Scrn Urine Cocaine Screen U Cannabinoids Screen Ethyl Alcohol 25.7 11/20/19 11/20/19 14:05 14:25 WBC RBC Hgb Hct MCV MCH MCHC RDW Plt Count MPV Neut # (Auto) Lymph # (Auto) [place] # (Auto) Eos # (Auto) Baso # (Auto) Absolute Nucleated RBC Nucleated RBC % ESR 1 Sodium Potassium Chloride Carbon Dioxide Anion Gap BUN Creatinine Estimated GFR (MDRD) Glucose Lactic Acid Calcium Total Bilirubin AST ALT Alkaline Phosphatase C-Reactive Protein Total Protein Albumin Globulin Albumin/Globulin Ratio Lipase Urine Opiates Screen POSITIVE H Ur Oxycodone Screen NEGATIVE Urine Methadone Screen POSITIVE H Ur Propoxyphene Screen NEGATIVE Ur Barbiturates Screen NEGATIVE Ur Tricyclics Screen NEGATIVE Ur Phencyclidine Scrn NEGATIVE Ur Amphetamine Screen POSITIVE H U Methamphetamines Scrn POSITIVE H U Benzodiazepines Scrn NEGATIVE Urine Cocaine Screen NEGATIVE U Cannabinoids Screen NEGATIVE Ethyl Alcohol PD MEDICAL DECISION MAKING - ED course ED course: This is a 39-year-old gentleman with known chronic osteomyelitis of the right ankle with ongoing drug and alcohol use. He does not appear septic but does have a white count. Feels like there is an abscess on the medial side of the right ankle. After some delay I was able to get a hold of his orthopedic surgeon, Dr. Kevin Jessica who will see in consult and recommends antibiotics and transfer to [facility]. Departure - Departure Disposition: 02 Transfer Acute Care Hosp Clinical Impression: Non-healing fracture, Cellulitis of right foot Ankle wound Qualifiers: Encounter type: initial encounter Laterality: right Qualified Code(s): S91.001A - Unspecified open wound, right ankle, initial encounter Condition: Stable
[2019-11-20 14:19] LABS: BASOPHILS # (AUTO) 0.2 10^3/uL (0.0-0.1); EOSINOPHILS # (AUTO) 0.4 10^3/uL (0.0-0.7); EOSINOPHILS % (AUTO) 2.7 %; HGB - HEMOGLOBIN 17.7 g/dL (14.0-18.0); LYMPHOCYTES # (AUTO) 4.5 10^3/uL (1.5-3.5); LYMPHOCYTES % (AUTO) 29.7 %; MEAN CORPUSCULAR HEMOGLOBIN 31.8 pg (27.0-31.0); MEAN CORPUSCULAR HGB CONC 34.8 g/dL (32.0-36.0); MEAN CORPUSCULAR VOLUME 91.4 fL (80.0-94.0); MONOCYTES # (AUTO) 1.2 10^3/uL (0.0-1.0); MONOCYTES % (AUTO) 7.7 %; NEUTROPHILS # (AUTO) 8.9 10^3/uL (1.5-6.6); NEUTROPHILS % (AUTO) 58.4 %; PLT - PLATELET COUNT 298 10^3/uL (130-450); RED BLOOD COUNT 5.57 10^6/uL (4.70-6.10); RED CELL DISTRIBUTION WIDTH 15.2 % (12.0-15.0); WHITE BLOOD COUNT 15.3 x10^3/uL (4.8-10.8)
--- NOTE | 2019-11-20 14:28 | XRAY Report ---
Reason: ankle infection Procedure Date: 11/20/2019 Accession Number: [id number] / [id number] Procedure: XR - Ankle 3 View RT CPT Code: Final Report FULL RESULT: EXAM: RIGHT ANKLE RADIOGRAPHY EXAM DATE: 11/20/2019 01:53 PM. CLINICAL HISTORY: Right ankle infection for more than one year COMPARISON: ANKLE 3 VIEW RT 08/19/2019 6:23 AM ANKLE 3 VIEW RT 06/27/2019 2:29 AM ANKLE 3 VIEW RT 05/27/2018 12:26 PM. TECHNIQUE: 3 views. FINDINGS: Bones: Remote clavicle ORIF. The hardware is intact. The fracture line remains evident with unchanged ill-defined adjacent sclerosis. 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 Abandoned hardware tract in the distal tibia. No focal periosteal reaction or cortical erosion. Plantar and posterior calcaneal spurs. Accessory os supranaviculare. Joints: Anatomic alignment at the ankle mortise. A trace tibiotalar joint effusion is present. Soft Tissues: Diffuse soft tissue swelling, as before, slightly increased over the medial malleolus with associated soft tissue defect seen on the frontal view. Posterior skin joão noted. IMPRESSION: 1. Increased soft tissue swelling with new ulceration overlying the medial malleolus, without radiographic evidence for osteomyelitis. If there is high clinical suspicion, consider contrast enhanced MRI which is more sensitive to evaluate for early osteomyelitis. 2. Chronic nonunited calcaneal fracture post-ORIF nonunited medial and lateral malleolar fractures. RADIA
[2019-11-20 14:38] LABS: ALBUMIN 3.8 g/dL (3.2-5.5); ALBUMIN/GLOBULIN RATIO 0.8 (1.0-2.2); BILIRUBIN,TOTAL 1.2 mg/dL (0.2-1.0); CALCIUM 9.1 mg/dL (8.5-10.3); CREATININE 0.9 mg/dL (0.6-1.2); CRP - C-REACTIVE PROTEIN 1.5 mg/dL (0-1.0); TOTAL PROTEIN 8.3 g/dL (6.7-8.2)
[2019-11-20 14:47] LABS: MUDS CUTOFF CONCENTRATIONS CUTOFF CONC BELOW:
[2019-11-20 15:02] LABS: AMPHETAMINE SCREEN,URINE POSITIVE (NEGATIVE); BENZODIAZEPINES SCREEN, URINE NEGATIVE (NEGATIVE); COCAINE SCREEN URINE NEGATIVE (NEGATIVE); METHADONE SCREEN, URINE POSITIVE (NEGATIVE); METHAMPHETAMINES SCREEN, URINE POSITIVE (NEGATIVE); OPIATE SCREEN, URINE POSITIVE (NEGATIVE); OXYCODONE SCREEN, URINE NEGATIVE (NEGATIVE); PROPOXYPHENE SCREEN, URINE NEGATIVE (NEGATIVE); TRICYCLIC ANTIDEPRESSANT,URINE NEGATIVE (NEGATIVE)
[2019-11-20] MEDS ORDERED: CEFEPIME 2 GM in SODIUM CHLORIDE 0.9% MINIBAG 100 ML IV STA (16:40)
[2019-11-20] MEDS ORDERED: VANCOMYCIN INJ 1.5 GM in SODIUM CHLORIDE 0.9% 500 ML IV STA (16:40)
[2019-11-20 17:48] VITALS: BP 125/99
== END 2019-11-20 18:28 | disposition short-term general hospital (02) ==
LOC: ED 13:17
DX: S92.001K Unspecified fracture of right calcaneus, subsequent encounter for fracture with nonunion (principal); L03.115 Cellulitis of right lower limb; S91.001A Unspecified open wound, right ankle, initial encounter; M86.671 Other chronic osteomyelitis, right ankle and foot; I10 Essential (primary) hypertension; F17.200 Nicotine dependence, unspecified, uncomplicated; F19.10 Other psychoactive substance abuse, uncomplicated
CPT/HCPCS: 36415; 73610; 80053; 83605; 83690; 85025; 85651; 86140; 87040; 96365; 96375; 99285; J1170; J3370; 80306; 80320

== ENCOUNTER 2019-11-20 18:25 | Outpatient (CLI) | payer MEDICARE | END 2019-11-20 23:59 | disposition short-term general hospital (02) | LOC: EMS 18:25 | PROVIDERS: ATTEND Surgery | DX: M86.9 Osteomyelitis, unspecified (principal) | CPT/HCPCS: A0425; A0426 ==

== ENCOUNTER 2020-07-05 19:00 | Emergency (ER) | payer MEDICARE ==
[2020-07-05 19:09] VITALS: BP 137/80
[2020-07-05] MEDS ORDERED: DOXYCYCLINE 100 MG TABLET PO STA (19:25)
--- NOTE | 2020-07-05 19:28 | ED Physician Documentation ---
PD HPI SKIN - Stated complaint Stated Complaint: DRESSING CHANGE - Chief complaint Chief Complaint: Wound - History obtained from History obtained from: Patient - Additional information Additional information: He is about 2 months out from a right leg BKA due to chronic intractable osteomyelitis of the Right calcaneus from a remote injury. he had an appointment for wound check and dressing change at [facility] yesterday but was unable to make it due to some transportation issues and wants the wound checked and dressed. He recently finished doxycycline for a wound infection. He did not have any trouble with that. Review of Systems Constitutional: reports: Reviewed and negative Eyes: reports: Reviewed and negative Ears: reports: Reviewed and negative Nose: reports: Reviewed and negative Throat: reports: Reviewed and negative Cardiac: reports: Reviewed and negative Respiratory: reports: Reviewed and negative PD PAST MEDICAL HISTORY - Past Medical History Cardiovascular: Hypertension Respiratory: None Neuro: Other Endocrine/Autoimmune: None GI: None : None HEENT: None Psych: Bipolar disorder, Post traumatic stress disorder Musculoskeletal: None Derm: None - Past Surgical History Past Surgical History: Yes Ortho: Arthroscopic surgery - Present Medications Home Medications: Ambulatory Orders Medication Instructions Recorded Confirmed Gabapentin 1,200 mg PO TID 08/21/16 08/19/19 Lisinopril 40 mg PO DAILY 08/21/16 08/19/19 Quetiapine Fumarate [Seroquel] 100 mg PO DAILY 08/21/16 08/19/19 OXcarbazepine [Oxcarbazepine] 1 tab PO BID 04/03/18 08/19/19 modafiniL [Modafinil] 1 tab PO DAILY 04/03/18 08/19/19 Buprenorphine HCl/Naloxone HCl 1 tab PO TID 05/27/18 08/19/19 [Suboxone 8-2 mg Sl tab] Sulfamethoxazole/Trimethoprim 1 each PO BID #14 tablet 02/01/19 08/19/19 [Sulfamethoxazole-Tmp Ds Tablet] Doxycycline Hyclate 100 mg PO BID #20 capsule 04/25/19 08/19/19 Mupirocin 1 applic TP TID #15 g 04/25/19 08/19/19 Naproxen 500 mg PO BID #20 tablet 04/25/19 08/19/19 Oxycodone HCl/Acetaminophen 1 each PO Q4HR #10 tablet 06/27/19 08/19/19 [Oxycodone-Acetaminophen 5-325] Doxycycline Hyclate 100 mg PO BID #20 tablet. 07/05/20 - Allergies Allergies/Adverse Reactions: Allergies Allergy/AdvReac Type Severity Reaction Status Date / Time bee venom protein (honey bee) Allergy Anaphylaxis Verified 07/05/20 19:08 - Social History Does the pt smoke?: Yes Smoking Status: Current every day smoker Does the pt drink ETOH?: Yes Does the pt have substance abuse?: Yes - Immunizations Immunizations are current?: Yes - POLST Patient has POLST: No PD ED PE NORMAL - Vitals Vital signs reviewed: Yes - General General: Alert and oriented X 3, No acute distress - HEENT HEENT: PERRL, EOMI - Neck Neck: Supple, no meningeal sign, No bony TTP - Extremities Extremities: Other (see MDM, text box too small) Results - Vitals Vitals: Vital Signs - 24 hr 07/05/20 19:03 Temperature 36.8 C Heart Rate 97 Respiratory 17 Rate Blood Pressure 137/80 H O2 Saturation 98 Oxygen O2 Source Room air PD MEDICAL DECISION MAKING - ED course ED course: R leg: He has a right BKA with anterior suture line. There were some retained sutures most of which were removed with some blunt debridement. There was a lot of scabby material. Culture was taken, there were a couple ulcers on the suture line, the deepest was anteromedial and that is where the culture is from. No overt cellulitis. There is one remaining suture which I could not find the knot for and remained in place. Departure - Departure Disposition: 01 Home, Self Care Clinical Impression: BKA stump complication Condition: Stable Record reviewed to determine appropriate education?: Yes Instructions: Stump Wrap Below Knee Dc Prescriptions: Doxycycline Hyclate 100 mg PO BID #20 tablet. Comments: Follow-up with [facility] next week as scheduled. Return for new or worsening symptoms. We are performing a wound culture, the results should be done in 48-72 hours. If antibiotic change is necessary we will call you. Return if worse in the meantime, especially if you develop increased pain, fevers, cannot keep down the medication. Otherwise follow-up with your physician in approximately 2-3 days.
== END 2020-07-05 19:41 | disposition home or self-care (01) ==
LOC: ED 19:00
DX: L76.82 Other postprocedural complications of skin and subcutaneous tissue (principal); L97.819 Non-pressure chronic ulcer of other part of right lower leg with unspecified severity; Y83.5 Amputation of limb(s) as the cause of abnormal reaction of the patient, or of later complication, without mention of misadventure at the time of the procedure; Z89.511 Acquired absence of right leg below knee; Z48.02 Encounter for removal of sutures; I10 Essential (primary) hypertension; F17.200 Nicotine dependence, unspecified, uncomplicated
CPT/HCPCS: 87070; 87181; 87205; 99283; A9270

== ENCOUNTER 2022-08-18 18:21 | Outpatient (CLI) | payer MEDICARE | END 2022-08-18 18:22 | disposition critical access hospital (66) | LOC: EMS 18:21 | DX: R56.9 Unspecified convulsions (principal) | CPT/HCPCS: A0425; A0429 ==

== ENCOUNTER 2022-08-18 19:03 | Emergency (ER) | payer MEDICAID, MEDICARE ==
--- NOTE | 2022-08-18 19:08 | ED Physician Documentation ---
History of Present Illness - Stated complaint Stated Complaint: SEIZURE - History obtained from History obtained from: Patient, EMS - Additonal information Additional information: 42-year-old gentleman with no history of seizure disorder but does have a history of ongoing polydrug use with injection use of both heroin and amphetamines today. He has a history of alcohol abuse but not recently. He had a seizure today, he is never had a seizure before. He laid down and had a 2- minute tonic-clonic seizure where he bit the left side of his tongue and evidently injured the left side of his face. He had a well described postictal period per EMS with slurred speech and confusion but that is now better. Other medical history is notable for osteomyelitis of the right ankle status post BKA. Review of Systems Constitutional: denies: Fever, Chills Ears: reports: Reviewed and negative Throat: reports: Reviewed and negative Cardiac: reports: Reviewed and negative PD PAST MEDICAL HISTORY - Past Medical History Cardiovascular: Hypertension Respiratory: None Neuro: Other Endocrine/Autoimmune: None GI: None : None HEENT: None Psych: Bipolar disorder, Post traumatic stress disorder Musculoskeletal: None Derm: None - Past Surgical History Past Surgical History: Yes Ortho: Arthroscopic surgery - Present Medications Home Medications: Ambulatory Orders Medication Instructions Recorded Confirmed Gabapentin 1,200 mg PO TID 08/21/16 08/19/19 Lisinopril 40 mg PO DAILY 08/21/16 08/19/19 Quetiapine Fumarate [Seroquel] 100 mg PO DAILY 08/21/16 08/19/19 OXcarbazepine [Oxcarbazepine] 1 tab PO BID 04/03/18 08/19/19 modafiniL [Modafinil] 1 tab PO DAILY 04/03/18 08/19/19 Buprenorphine HCl/Naloxone HCl 1 tab PO TID 05/27/18 08/19/19 [Suboxone 8-2 mg Sl tab] Sulfamethoxazole/Trimethoprim 1 each PO BID #14 tablet 02/01/19 08/19/19 [Sulfamethoxazole-Tmp Ds Tablet] Doxycycline Hyclate 100 mg PO BID #20 capsule 04/25/19 08/19/19 Mupirocin 1 applic TP TID #15 g 04/25/19 08/19/19 Naproxen 500 mg PO BID #20 tablet 04/25/19 08/19/19 Oxycodone HCl/Acetaminophen 1 each PO Q4HR #10 tablet 06/27/19 08/19/19 [Oxycodone-Acetaminophen 5-325] Doxycycline Hyclate 100 mg PO BID #20 tablet. 07/05/20 - Allergies Allergies/Adverse Reactions: Allergies Allergy/AdvReac Type Severity Reaction Status Date / Time bee venom protein (honey bee) Allergy Anaphylaxis Verified 08/18/22 19:25 - Social History Does the pt smoke?: Yes Smoking Status: Current every day smoker Does the pt drink ETOH?: Yes Does the pt have substance abuse?: Yes - Immunizations Immunizations are current?: Yes - POLST Patient has POLST: No PD ED PE NORMAL - Vitals Vital signs reviewed: Yes - General General: Alert and oriented X 3, No acute distress - HEENT HEENT: PERRL, EOMI, Other (Some diffuse swelling of the right face without facial bony tenderness. No evidence of entrapment. There is a small laceration of the left side of the tongue that does not require closure.) - Neck Neck: No bony TTP (But will CT given that he felt a crunch in his neck.) - Cardiac Cardiac: RRR, No murmur - Respiratory Respiratory: No respiratory distress, Clear bilaterally - Abdomen Abdomen: Non tender - Neuro Neuro: Alert and oriented X 3, solid die cutter 2-12 intact, No motor deficit, No sensory deficit, Normal speech Eye Opening: Spontaneous Motor: Obeys Commands Verbal: Oriented GCS Score: 15 Results - Vitals Vitals: Vital Signs - 24 hr 08/18/22 08/18/22 08/18/22 19:11 19:30 20:24 Temperature 36.2 C L Heart Rate 107 H 86 82 Respiratory 14 16 14 Rate Blood Pressure 159/99 H 132/102 H 124/79 O2 Saturation 97 100 100 08/18/22 20:30 Temperature Heart Rate 81 Respiratory 14 Rate Blood Pressure 127/88 H O2 Saturation 100 Oxygen O2 Source Room air - EKG (time done) 1906 Rate: Rate (enter#) (95) Rhythm: NSR [place]: Normal Intervals: Normal SC QRS: Normal Ischemia: Normal ST segments. No: ST elevation c/w ischemia, ST depression - Labs Labs: Laboratory Tests 08/18/22 08/18/22 19:30 19:30 WBC 8.5 RBC 5.22 Hgb 14.8 Hct 46.1 MCV 88.3 MCH 28.4 MCHC 32.1 RDW 14.0 Plt Count 198 MPV 7.8 Neut # (Auto) 5.8 Lymph # (Auto) 1.8 [place] # (Auto) 0.6 Eos # (Auto) 0.1 Baso # (Auto) 0.1 Absolute Nucleated RBC 0.00 Nucleated RBC % 0.0 Sodium 135 Potassium 3.7 Chloride 101 Carbon Dioxide 27 Anion Gap 7.0 BUN 27 H Creatinine 1.2 Estimated GFR (MDRD) 66 L Glucose 56 L* Calcium 8.2 L Magnesium 2.2 Total Bilirubin 0.7 AST 35 ALT 38 Alkaline Phosphatase 69 Total Protein 7.0 Albumin 3.7 Globulin 3.3 Albumin/Globulin Ratio 1.1 PD Medical Decision Making - ED course ED course: 42-year-old gentleman with new onset seizure today. He had never had one before. Given the above history this is likely related to amphetamine injection drug use. He remained stable while here. Given the injuries and the new onset seizure a CT of the head and cervical spine were done, without pertinent positive findings, these were reviewed independently by me prior to the final report received. Labs were reviewed and unremarkable with exception of low blood sugar on his metabolic panel. He was fed and his blood sugar was rechecked and was 91. He was counseled to quit amphetamine use as this was likely causative and he voices understanding. He was also given a prepack of Narcan as there is ongoing opiate abuse 2. Departure - Departure Disposition: 01 Home, Self Care Clinical Impression: Seizure, Polysubstance abuse Condition: Good Record reviewed to determine appropriate education?: Yes Instructions: ED Seizure New Onset Unk Cause Comments: You were seen today for new onset seizure. CAT scan of the head and neck were unremarkable, given the circumstances it is likely that this seizure was related to ongoing drug use, especially amphetamines. Per [place] law, you may not drive or operate a motor vehicle for the next 6 months. I encourage you to quit using drugs. If you would like inpatient detox there is an inpatient detoxification center in [place]: [facility] [address] [place] [address] Call your doctor to arrange a follow-up appointment, make the next available appointment. In the interim, return anytime if worse or if new symptoms develop.
[2022-08-18 19:37] LABS: BASOPHILS # (AUTO) 0.1 10^3/uL (0.0-0.1); BASOPHILS % (AUTO) 1.1 %; EOSINOPHILS # (AUTO) 0.1 10^3/uL (0.0-0.7); EOSINOPHILS % (AUTO) 1.2 %; HCT - HEMATOCRIT 46.1 % (42.0-52.0); HGB - HEMOGLOBIN 14.8 g/dL (14.0-18.0); LYMPHOCYTES # (AUTO) 1.8 10^3/uL (1.5-3.5); LYMPHOCYTES % (AUTO) 21.5 %; MEAN CORPUSCULAR HEMOGLOBIN 28.4 pg (27.0-31.0); MEAN CORPUSCULAR HGB CONC 32.1 g/dL (32.0-36.0); MEAN CORPUSCULAR VOLUME 88.3 fL (80.0-94.0); MEAN PLATELET VOLUME 7.8 fL (7.4-11.4); MONOCYTES # (AUTO) 0.6 10^3/uL (0.0-1.0); MONOCYTES % (AUTO) 7.3 %; NEUTROPHILS # (AUTO) 5.8 10^3/uL (1.5-6.6); NEUTROPHILS % (AUTO) 68.5 %; PLT - PLATELET COUNT 198 10^3/uL (130-450); RED BLOOD COUNT 5.22 10^6/uL (4.70-6.10); WHITE BLOOD COUNT 8.5 x10^3/uL (4.8-10.8)
--- NOTE | 2022-08-18 19:46 | CT Report ---
PROCEDURE: HEAD WO INDICATIONS: head/neck inj, seizure TECHNIQUE: Noncontrast 4.5 mm thick angled axial sections acquired from the foramen magnum to the vertex. For r adiation dose reduction, the following was used: automated exposure control, adjustment of mA and/or kV according to patient size. COMPARISON: CT head 08/21/2016 FINDINGS: Image quality: Excellent. CSF spaces: Basal cisterns are patent. No extra-axial fluid collections. Ventricles are normal in size and shape. Brain: No midline shift. No intracranial masses or hemorrhage. Rodriguez-white matter interface is norm al. Skull and face: Mild scalp edema is seen in the left frontal region. Calvarium and visualized facial bones are intact, without suspicious lesions. Sinuses: Visualized sinuses and mastoids are clear. IMPRESSION: No acute intracranial abnormality. Reviewed by: Sylvain Fernández MD on 08/18/2022 7:44 PM PST Approved by: Sylvain Fernández MD on 08/18/2022 7:44 PM PST Station ID: [id number]
--- NOTE | 2022-08-18 19:49 | CT Report ---
PROCEDURE: CERVICAL SPINE WO INDICATIONS: head/neck inj, seizure TECHNIQUE: Noncontrast 3 mm thick sections acquired from the skull base to the T4 level. Sagittal and coronal r eformats were then constructed. For radiation dose reduction, the following was used: automated exp osure control, adjustment of mA and/or kV according to patient size. COMPARISON: Cervical spine CT 08/21/2016. FINDINGS: Image quality: Excellent. Bones: No fractures or dislocations. Visualized superior ribs are intact. Soft tissues: Prevertebral soft tissues are normal in thickness. No paravertebral hematomas. No ap ical pneumothoraces. IMPRESSION: No acute cervical spine fracture or subluxation. Reviewed by: Sylvain Fernández MD on 08/18/2022 7:48 PM PST Approved by: Sylvain Fernández MD on 08/18/2022 7:48 PM PST Station ID: [id number]
[2022-08-18 19:55] LABS: ALBUMIN 3.7 g/dL (3.2-5.5); ALBUMIN/GLOBULIN RATIO 1.1 (1.0-2.2); BILIRUBIN,TOTAL 0.7 mg/dL (0.2-1.0); CALCIUM 8.2 mg/dL (8.5-10.3); CREATININE 1.2 mg/dL (0.6-1.2); MAGNESIUM 2.2 mg/dL (1.7-2.8); POTASSIUM 3.7 mmol/L (3.5-5.0)
[2022-08-18 20:33] VITALS: BP 127/88
[2022-08-18] MEDS: NALOXONE HCL NASAL SPRAY KIT NAS STA (20:46)
== END 2022-08-18 20:50 | disposition home or self-care (01) ==
LOC: EDUNIT# → ED 19:03
DX: G40.89 Other seizures (principal); F19.10 Other psychoactive substance abuse, uncomplicated; F17.200 Nicotine dependence, unspecified, uncomplicated
CPT/HCPCS: 36415; 70450; 72125; 80053; 83735; 85025; 93005; 99284; G2215

== ENCOUNTER 2023-09-09 15:43 | Emergency (ER) | payer OTHER, MEDICARE ==
[2023-09-09 16:09] VITALS: BP 156/98; O2SAT 100
== END 2023-09-09 16:13 | disposition left against medical advice (07) ==
LOC: EDUNIT# → ED 15:43
DX: Z53.21 Procedure and treatment not carried out due to patient leaving prior to being seen by health care provider (principal)

== ENCOUNTER 2023-09-09 22:47 | Emergency (ER) | payer OTHER, MEDICARE ==
[2023-09-09 22:59] VITALS: BP 120/70; O2SAT 98
--- NOTE | 2023-09-09 23:06 | ED Physician Documentation ---
History of Present Illness - Stated complaint Stated Complaint: FIT - Chief complaint Chief Complaint: Ext Problem - History obtained from History obtained from: Patient - Additonal information Additional information: 43yM presents to the ED for checkup of his amputated limb. denies fever, injury, swelling to the limb or streaking redness. PD PAST MEDICAL HISTORY - Past Medical History Past Medical History: Yes Cardiovascular: Hypertension Respiratory: None Neuro: Other Endocrine/Autoimmune: None GI: None : None HEENT: None Psych: Bipolar disorder, Post traumatic stress disorder Musculoskeletal: None Derm: None - Past Surgical History Past Surgical History: Yes Ortho: Arthroscopic surgery - Present Medications Home Medications: Ambulatory Orders Medication Instructions Recorded Confirmed Gabapentin 1,200 mg PO TID 08/21/16 08/19/19 Lisinopril 40 mg PO DAILY 08/21/16 08/19/19 Quetiapine Fumarate [Seroquel] 100 mg PO DAILY 08/21/16 08/19/19 OXcarbazepine [Oxcarbazepine] 1 tab PO BID 04/03/18 08/19/19 modafiniL [Modafinil] 1 tab PO DAILY 04/03/18 08/19/19 Buprenorphine HCl/Naloxone HCl 1 tab PO TID 05/27/18 08/19/19 [Suboxone 8-2 mg Sl tab] Sulfamethoxazole/Trimethoprim 1 each PO BID #14 tablet 02/01/19 08/19/19 [Sulfamethoxazole-Tmp Ds Tablet] Doxycycline Hyclate 100 mg PO BID #20 capsule 04/25/19 08/19/19 Mupirocin 1 applic TP TID #15 g 04/25/19 08/19/19 Naproxen 500 mg PO BID #20 tablet 04/25/19 08/19/19 Oxycodone HCl/Acetaminophen 1 each PO Q4HR #10 tablet 06/27/19 08/19/19 [Oxycodone-Acetaminophen 5-325] Doxycycline Hyclate 100 mg PO BID #20 tablet. 07/05/20 - Allergies Allergies/Adverse Reactions: Allergies Allergy/AdvReac Type Severity Reaction Status Date / Time bee venom protein (honey bee) Allergy Anaphylaxis Verified 09/09/23 23:00 - Social History Does the pt smoke?: Yes Smoking Status: Current every day smoker Does the pt drink ETOH?: Yes Does the pt have substance abuse?: Yes - Immunizations Immunizations are current?: Yes - POLST Patient has POLST: No PD ED PE NORMAL - Vitals Vital signs reviewed: Yes - General General: Alert and oriented X 3, No acute distress, Well developed/nourished - HEENT HEENT: Atraumatic, PERRL, EOMI - Derm Derm: Normal color, Warm and dry, No rash, Other (no cellulitis) - Extremities Extremities: Other (RLE above knee amputation. skin intact, no cellulitis. nontender to palpation) Results - Vitals Vitals: Vital Signs - 24 hr 09/09/23 22:55 Temperature 36.0 C L Heart Rate 82 Respiratory 19 Rate Blood Pressure 120/70 O2 Saturation 98 Oxygen O2 Source Room air PD Medical Decision Making - ED course ED course: 43yM presents to the ED for soreness to R knee amputated limb. it looks good on exam without signs of infection. Barrier cream was applied and advised eucerin cream at the [facility]. return precautions given. Departure - Departure Clinical Impression: Pain of amputation stump of lower extremity Condition: Stable Instructions: Residual Limb Care Comments: You were seen in the emergency department for amputated limb medical check. Please apply eucerin cream or equivalent twice daily and make sure to air it out regularly. Please follow-up with your primary care provider and return to the emergency department if you have any new or worsening symptoms or other concerns.
== END 2023-09-09 23:26 | disposition home or self-care (01) ==
LOC: ED 22:47
DX: M79.661 Pain in right lower leg (principal); Z89.511 Acquired absence of right leg below knee; F17.200 Nicotine dependence, unspecified, uncomplicated
CPT/HCPCS: 99281; 99283